=== PATIENT | male | born 1960 | race Caucasian/White ===

== ENCOUNTER 2021-05-21 12:53 | Emergency (ER) | payer OTHER, SELFPAY ==
--- NOTE | ~2021-05-21 | XR_ITS ---
XR forearm LT 2V DATE: 05/21/2021 13:20 INDICATION: Puncture wound to distal forearm TECHNIQUE: 3 views, AP and lateral projections COMPARISON: None FINDINGS: No fracture or dislocation, periosteal reaction or bone destruction. No radiopaque soft tis [place] foreign body is detected. No subcutaneous emphysema is noted. IMPRESSION: No significant abnormality Reviewed, dictated and finalized at location A. IMPRESSION: No significant abnormality
[2021-05-21 13:05] VITALS: BP 134/85; PULSE 106; RESP 20; TEMP 36.3; O2SAT 98
--- NOTE | 2021-05-21 13:12 | ED.WOUNDLAC ---
HPI - Wound/Laceration General Chief Complaint: Wound/Laceration Stated Complaint: Laceration to hand Time Seen by Provider: 05/21/21 12:57 Source: patient and RN notes reviewed Mode of arrival: ambulatory Limitations: no limitations History of Present Illness Onset (ago): hour(s) (1) Extremity Location: Left: forearm Place: outdoors Patient tetanus UTD: No Context: accidental Associated symptoms: pain and other (drill bit slipped and punctured palmar medial distal left forearm.) Treatments prior to arrival: bandage Related Data Allergies Allergy/AdvReac Type Severity Reaction Status Date / Time No Known Allergies Allergy Verified 05/21/21 13:12 Review of Systems Review of Systems: All systems reviewed & are unremarkable except as noted in HPI and below Constitutional: Constitutional: Reports as per HPI and Reports no additional constitutional complaints Eyes: Eyes: Reports as per HPI and Reports no additional eye complaints ENT: Reports system reviewed and no additional complaints, except as documented and Reports as per HPI Cardiovascular: Cardiovascular: Reports as per HPI and Reports no additional cardiovascular complaints Respiratory: Respiratory: Reports as per HPI and Reports no additional respiratory complaints Gastrointestinal: Gastrointestinal: Reports as per HPI and Reports no additional gastrointestinal complaints Genitourinary: Genitourinary: Reports no additional male genitourinary complaints and Reports as per HPI Musculoskeletal: Musculoskeletal: Reports no additional musculoskeletal complaints, Reports as per HPI and Reports myalgias (puncture wound of left distal forearm) Integumentary/Breasts: Skin/Breast: Reports system reviewed and no additional complaints, except as docu and Reports as per HPI Neurologic: Reports system reviewed and no additional complaints, except as documented and Reports as per HPI Psychiatric: Psychiatric: Reports no additional psychiatric complaints and Reports as per HPI Endocrine: Endocrine: Reports no additional endocrine complaints and Reports as per HPI Hematologic/Lymphatic: Hematologic/Lymphatic: Reports no additional hematologic/lymphatic complaints and Reports as per HPI Allergic/Immunologic: Allergic/Immunologic: Reports no additional allergic/immunologic complaints and Reports as per HPI PMFSH Past Medical History Medical History Cataract associated with other syndromes Medical history non-contributory Social History Social History Gender identity (if verbalized by the patient): Male Exam Const: General: healthy appearing, no acute distress and alert Orientation/consciousness: patient oriented x3 Limitations: no limitations HENMT: Head: normal to inspection Ears: external ears normal and TM's normal bilaterally General nose exam: Normal external nose present and Normal nares present Mouth: Yes lip normal and Yes moist mucous membranes Teeth and gingiva: dentition normal Eyes: Conjunctivae: conjunctivae normal Pupils: Equal, round and reactive pupils present EOM: EOMs intact bilaterally Neck: Neck: normal visual inspection and no lymphadenopathy Chest: Chest palpation & inspection: normal inspection of the chest Resp: Effort & Inspection: normal respiratory effort Auscultation: clear to auscultation bilaterally Cardio: Rate: regular rate Rhythm: regular rhythm GI: GI Palp: Yes Soft to palpation Percussion: Yes normal to percussion Auscultation: normal bowel sounds Back/Spine/Pelvis: Back: no CVA tenderness Skin: General skin exam: normal color Rashes: no rashes Neuro: General: patient oriented x3, moves all extremities, no focal motor deficits and CN's II-XI intact bilaterally Extrem: General: normal to inspection Other: distal palmar ulnar left forearm puncture wound. no acute bleeding Psych: Appearance: grossly no
[2021-05-21] MEDS: cefTRIAXone 1 GM VIAL IM (13:25)
[2021-05-21] MEDS: ACETAMINOPHEN 325 MG TABLET 650 MG PO (13:30)
[2021-05-21] MEDS: TETANUS,DIPHTHERIA,AC PERTUSSIS ADULT 0.5 ML (ADACEL) IM (13:31)
[2021-05-21] MEDS: LIDOCAINE HCL 1% LOCAL INJ 20 ML VIAL (13:33)
[2021-05-21 14:21] VITALS: BP 143/85; PULSE 99; RESP 20; TEMP 36.5; O2SAT 96
== END 2021-05-21 14:00 | disposition home or self-care (01) ==
PROVIDERS: Emergency Provider Emergency Medicine; PCP Internal Medicine
DX: S51.812A Laceration without foreign body of left forearm, initial encounter (principal); W45.8XXA Other foreign body or object entering through skin, initial encounter
CPT/HCPCS: 12001; 73090; 90471; 90715; 96372; 99283; A9270; J0696

== ENCOUNTER 2022-12-18 08:15 | Outpatient (CLI) | payer OTHER, SELFPAY ==
--- NOTE | ~2022-12-18 | XR_ITS ---
XR hip LT 2V w AP pelvis DATE: 12/18/2022 08:52 INDICATION: Left hip and groin pain after moving furniture TECHNIQUE: AP pelvis. AP and lateral views of left hip COMPARISON: None FINDINGS: Bilateral hip osteoid arthritis, mild on the left, moderate to moderately severe on the rig ht. The pubic symphysis and sacroiliac joints are intact. No pelvic fracture or bone destruction is detec gagan. No fracture, dislocation, avascular necrosis or bone destruction of the left hip. IMPRESSION: Bilateral hip osteoarthritic arthritis, right greater than left No fracture or dislocation Reviewed, dictated and finalized at location L. TRUCTION ACCOUNTANT
== END 2022-12-18 08:16 | disposition home or self-care (01) ==
LOC: CHSIMG 08:20
PROVIDERS: PCP Internal Medicine; Visit Provider Internal Medicine
DX: M25.552 Pain in left hip (principal); M16.0 Bilateral primary osteoarthritis of hip
CPT/HCPCS: 73502

== ENCOUNTER 2023-09-08 11:37 | Outpatient (CLI) | payer MEDICARE, OTHER, SELFPAY ==
--- NOTE | ~2023-09-08 | XR_ITS ---
Thoracic spine: Clinical Indication: Back pain AP and lateral views were performed. No fracture is seen. There is normal alignment of the vertebrae. The intervertebral disc spaces appe ar normal. Paravertebral soft tissues appear normal. Impression: No significant abnormalities noted. Reviewed, dictated and finalized at [facility]. KROOM INVENTORY CLERK Impression: No significant abnormalities noted.
--- NOTE | ~2023-09-08 | XR_ITS ---
Lumbosacral Spine: AP and lateral views Clinical History: Pain Findings: The normal lordotic curve is maintained. The vertebral bodies and posterior elements are i ntact. The intervertebral disc spaces are preserved. There is moderate to advanced facet arthropathy , especially at L4-L5 and L5-S1. The sacroiliac joints are normally outlined. Impression: Moderate to advanced facet arthropathy at the lower lumbar spine. Reviewed, dictated and finalized at location M. HEARTH FURNACE OPERATOR Impression: Moderate to advanced facet arthropathy at the lower lumbar spine.
== END 2023-09-08 11:38 | disposition home or self-care (01) ==
PROVIDERS: PCP Internal Medicine; Visit Provider Internal Medicine
DX: M54.6 Pain in thoracic spine (principal); D72.829 Elevated white blood cell count, unspecified; R35.89 Other polyuria; M12.88 Other specific arthropathies, not elsewhere classified, other specified site
CPT/HCPCS: 72072; 72100

== ENCOUNTER 2023-09-17 07:49 | Outpatient (RCR) | payer MEDICARE, OTHER, SELFPAY ==
--- NOTE | 2023-09-30 17:49 | OPREHPOC ---
Outpatient Therapy Plan of Care This is a Multidisciplinary Plan of Care that may contain components documented by all disciplines (PT, OT, and ST.) PT Problem 1 PT Problem #1 Knowledge Deficit PT Goal 1 Goal 1. independent and compliant with HEP Target Visit 2 PT Problem 2 PT Problem #2 Impaired Range of Motion PT Goal 1 Goal 1. improve active flexion of the trunk to the ankles. Target Visit 3 PT Problem 3 PT Problem #3 Impaired Strength PT Goal 1 Goal 1. 5/5 bilateral hip strength Target Visit 3 PT Problem 4 PT Problem #4 Impaired Flexibility PT Goal 1 Goal 1. improve bilateral hamstrings tightness to less than 40 degrees from 0 per the 90/90 test.
--- NOTE | 2023-09-30 17:49 | PTOPEVAL1 ---
Assessment and note entered by JT File, PT Evaluation Information Assessment Status Evaluation Diagnosis lumbago Onset 09/11/23 Subjective Information he reports he did not hurt himself lifting. he reports he has cysts in his L groin. he reports they will burst and become infected from time to time. he reports the doctor told him the infectiong lingered around and went up to his back . he reports he is on antibiotics for the issues. he reports laying down is fine. he reports he has very little discomfort currently. he reports his round of antibiotics ends tomorrow. he reports he has no trouble driving. he reports sitting makes the back worse. Assessment PT Clinical Summary mr. quick is a 63 yo man who presents to skilled PT for evaluation and treatment of lower back pain . he presents today with no pain in the lower back , and flare ups of pain only with groin swelling from cyst infection. he presents today with slight weakness in the hips/core, deficits in trunk active flexion, and hamstrings tightness. he would benefit from continued skilled PT to improve his core and LE strength to prepare for potential surgery to remove the problematic cysts. Plan of Care Interventions Gait Training,Manual Therapy,Neuro Re-education, Patient/Caregiver Educati,Therapeutic Activities, Therapeutic Exercise PT Services Indicated Yes Treatment Frequency and 1x weekly for 3 visits Duration These treatments will address the objective and functional deficits as defined above. The patient will be advanced safely and appropriately in order for the patient to progress towards his/her prior level of function. Additional exercises will be introduced and as well as a comprehensive home exercise program upon discharge, if needed, ?to ensure carryover of functional gains achieved in the clinic. This treatment plan has been reviewed and agreement upon by the patient.
--- NOTE | 2023-10-01 07:41 | OPREHPOC ---
Outpatient Therapy Plan of Care This is a Multidisciplinary Plan of Care that may contain components documented by all disciplines (PT, OT, and ST.) PT Problem 1 PT Problem #1 Knowledge Deficit PT Goal 1 Goal 1. independent and compliant with HEP Target Visit 2 Progress Met PT Problem 2 PT Problem #2 Impaired Range of Motion PT Goal 1 Goal 1. improve active flexion of the trunk to the ankles. Target Visit 3 Progress Not Met PT Problem 3 PT Problem #3 Impaired Strength PT Goal 1 Goal 1. 5/5 bilateral hip strength Target Visit 3 Progress Met PT Problem 4 PT Problem #4 Impaired Flexibility PT Goal 1 Goal 1. improve bilateral hamstrings tightness to less than 40 degrees from 0 per the 90/90 test. Target Visit 3 Progress Partially Met
--- NOTE | 2023-10-01 07:41 | PTOPDC ---
Assessment and note entered by JT File, PT Evaluation Information Assessment Status Discharge Diagnosis lumbago Onset 09/11/23 Subjective Information patient reports the exercises he has been doing since therapy have helped his back. however, he did have a flare up in the groin last week that caused pain in the lower back. he reports he has some soreness in the back from lifting books and other objets at work the last few days. he reports in general staying active makes him feel better, and he believes when he is down from his groin infections that his back flares up from not being active. he reports he is having the cysts removed at the turn of the year. Reported Pain Level Pain Score 0: Self Report Assessment PT Clinical Summary mr. quick presents to skilled PT for his 2nd skilled therapy visit. he reports he is doing well and is ready to DC skilled PT. he reports his back pain continues to be tied to infetious flare ups in the L groin. today, he displays greater hip strength, improved self functional assessment on the oswestry, and no pain. he will DC to [facility] today, and was told to follow up for any occurence of back pain after the L groin cyst removal. Plan of Care PT Services Indicated Yes
== END 2023-10-01 20:00 | disposition home or self-care (01) ==
LOC: CHSPT 07:49
PROVIDERS: PCP Internal Medicine; Visit Provider Internal Medicine
DX: M54.9 Dorsalgia, unspecified (principal)
CPT/HCPCS: 97110; 97161

== ENCOUNTER 2023-10-07 09:52 | Outpatient (CLI) | payer MEDICARE, OTHER, SELFPAY ==
--- NOTE | ~2023-10-07 | CT_ITS ---
EXAMINATION: CT lung screening DATE: 10/07/2023 10:24 INDICATION: History of nicotine dependence TECHNIQUE: Computed tomography (CT) of the chest was performed without intravenous contrast. The dose -length product was 143.27 mGy-cm. Automated exposure control and iterative reconstruction technique were employed. COMPARISON: None FINDINGS: No significant pleural or pericardial effusion. There is atherosclerosis. Heart size normal . Nonobstructing left renal stone measuring 9 mm. No thoracic lymphadenopathy. No endobronchial lesio ns. No pneumothorax. No suspicious pulmonary nodules or masses. No endobronchial lesions. IMPRESSION: 1. Lung-RADS category 1: Negative. Continue annual screening with noncontrast low-dose chest CT in 12 months. Reviewed, dictated and finalized at location B. ING MANAGER IMPRESSION: 1. Lung-RADS category 1: Negative. Continue annual screening with noncontrast l ow-dose chest CT in 12 months.
== END 2023-10-07 09:53 | disposition home or self-care (01) ==
LOC: CHSIMG 09:53
PROVIDERS: PCP Internal Medicine; Visit Provider Internal Medicine
DX: Z12.2 Encounter for screening for malignant neoplasm of respiratory organs (principal); F17.210 Nicotine dependence, cigarettes, uncomplicated
CPT/HCPCS: 71271

== ENCOUNTER 2024-01-04 00:36 | Day surgery (SDC) | payer MEDICARE, OTHER, SELFPAY ==
[2023-12-23 13:48] VITALS: BMI 30.8
--- NOTE | 2023-12-23 14:15 | PC.NURSE ---
Report to the Outpatient Waiting Room, entrance under the green pavilion located off [facility], at time __10:30AM on date __01/04/24 . Planned Procedure Time: __12:30PM . Time changes happen often and if your time is changed the preop area will call you the afternoon before. - You and your visitor will be asked to self-screen and do not enter if you have any COVID symptoms. - A mask is optional within the hospital at this time. Patients may have clear liquids (water, carbonated beverages, clear teas, apple juice) until 3 hours prior to surgery with a maximum of 20 ounces. - No food from midnight until time of surgery - Infants may have breast milk until 4 hours before surgery, formula 6 hours prior to surgery. - Children will be allowed to drink immediately following surgery. If applicable, please bring a bottle or sippy cup to assist with drinking. Juice, water, soda, and popsicles are readily available. For infants on formula, please bring formula the day of surgery. Pacifiers are allowed. Take the following medications with a SIP of water the morning of surgery: NONE (PT WILL HAVE FINISHED ANTIBIOTICS BEFORE SURGERY)___ DO NOT STOP ANY OF YOUR OTHER PRESCRIPTION MEDICATIONS PRIOR TO SURGERY ?EXCEPT THE FOLLOWING Medications to discontinue per physician ____HOLD ALL VITAMINS/SUPPLEMENTS 3 DAYS PRE-OP PER ANESTHESIA Date to take last dose 12/31/23 Please no make-up, nail greek, hairspray, perfume, deodorant, or body powder the day of surgery. No jewelry (including any body piercings) or valuables the day of surgery, leave them at home. Please take a shower or bath the night before, or the morning of, surgery with an antibacterial soap. Wear comfortable, loose fitting clothing. Children are encouraged to wear pajamas. - Jewelry must be removed prior to entering the operating room. Rings and piercings that are not removed may be cut off. - The hospital will not accept responsibility for valuables. - Please leave all valuables, including medications, at home the day of surgery. If you are going home after surgery, a licensed utility worker driver must drive you home. - NO public transportation without another adult if you receive anesthesia. - We recommend that an adult stay with you for 24 hours following discharge. - We also recommend that you do not drive, make important decision, drink alcoholic beverages, or take any drugs that were not prescribed by your health care provider for at least 24 hours after your discharge time. For Pediatric surgeries, we recommend two adults accompany the child home. Follow any additional instructions given to you from your surgeon. If you or anyone in your household have experienced Covid symptoms in the past week, please notify your surgeon or the nurse liaison at the phone number below for possible testing. Telephone instructions given to ____PATIENT and asked if any additional questions and then verbalized understanding. Patient advised to call surgeon office or pre surgery nurse liaison [phone] if any additional questions.
[2024-01-04] VITALS (9 sets, daily range): BP systolic 114–161; BP diastolic 63–87; PULSE 57–88; RESP 10–18; TEMP 36.3–36.9; O2SAT 97–100; BMI 29.4
[2024-01-04] MEDS: LACTATED RINGERS 1,000 ML 30 ML IV CONT ×2 (11:04→13:38)
--- NOTE | 2024-01-04 12:03 | P.PNAN_ITS ---
Anes - Initial Pre Proc Eval Procedure: Operation Date: 01/04/24 12:30 Proposed Procedures p Excision of Left Groin Hidradenitis - Jorgito Kerns DO Date/Time: 01/04/24 12:03 Surgeon: Jorgito Kerns DO Pre Op Diagnosis: Hidradenitis Patient Data Age: 63 Gender: M Height: 1.83 m Weight: 98.3 kg Last Vital Signs Temp 98.4 F 01/04/24 11:01 Pulse 85 01/04/24 11:01 Resp 16 01/04/24 11:01 BP 159/87 H 01/04/24 11:01 Pulse Ox 99 01/04/24 11:01 O2 Del Method Room Air 01/04/24 11:01 Allergies Allergy/AdvReac Type Severity Reaction Status Date / Time No Known Allergies Allergy Verified 12/23/23 13:45 Home Medications Medication Instructions Recorded Confirmed Type acetaminophen 650 mg 1,300 mg PO Q12H PRN Pain 12/23/23 01/04/24 History tablet,extended release ciprofloxacin HCl 500 mg tablet 500 mg PO BID 12/23/23 12/23/23 History metronidazole 500 mg tablet 500 mg PO TID 12/23/23 12/23/23 History multivitamin 1 tablet PO DAILY 12/23/23 01/04/24 History Patient hx anesthesia problems: none Family hx anesthesia problems: none Results Review: All pre-operative results and documents have been reviewed as part of the pre- operative evaluation. [facility] Past Medical History Medical History Cataract associated with other syndromes Leukemia Medical history non-contributory Surgical History Surgical History History of back surgery Family History Family History Mother Diabetes mellitus Rectal cancer Father History of kidney cancer Social History Social History Smoking packs per day: 0.75 Smoking cigarettes per day: 15.0 Years smoked: 47 Smoking pack-years: 35.25 Smoking status: Current every day smoker Tobacco type: cigarettes Alcohol intake: never Living arrangements: with family Additional living arrangements comments: SISTER-LALITHA Occupation/Education: occupation Additional occupation/education comments: [employer] Gender identity (if verbalized by the patient): Male Spiritual care concerns: No Anes - Eval Final PreProcedure Day of Procedure 01/04/24 12:03 Patient weight: obese Heart: regular rate and rhythm Lungs: clear to auscultation Airway: Mallampati scale class II Neurological: alert and oriented Last oral intake: >/= 8 hours ASA classification: III Emergent: no Anesthetic plan: proceed Anesthesia type and monitoring: general LMA and standard monitoring Results Review: All pre-operative results and documents have been reviewed as part of the pre- operative evaluation. Informed Consent: The patient's anesthetic plan and its attendant risks and benefits were discussed with the patient/family/POA. Questions were solicited and answers provided to the satisfaction of the patient/family/POA.
--- NOTE | 2024-01-04 12:08 | WPDHPUPDATE1 ---
History and Physical Update Update Date/Time: 01/04/24 12:08 History and Physical has been reviewed, including an updated exam of the patient. There are NO changes in the patient's condition. Risks, benefits, and alternatives have been discussed and questions answered. Patient agrees to proceed with procedure.
[2024-01-04] MEDS: ceFAZolin 2 GM/D5W 50 ML 2 GM/50 ML BAG IVPB (12:26)
[2024-01-04] MEDS: LIDO 1%/EPINEPHRINE 1:100,000 20 ML VIAL INFILTRATE (12:45)
--- NOTE | 2024-01-04 13:08 | W.PM.PROC2 ---
Procedure Note - Detailed Date of Procedure 01/04/24 Pre-op Diagnosis Left groin hidradenitis Post-op Diagnosis Same Procedure Performed Excision left groin hidradenitis Surgeon Jorgito Kerns, DO Anesthesia General and Local (1% lidocaine with epinephrine) Indications This is a 63-year-old man who presented with chronic hidradenitis that was becoming infected and draining room multiple times per year. He has tried minute topical treatment options but still continues to occasional drainage. Discussions were made with the patient about treatment options and decision was made to proceed with excision the left groin hidradenitis Findings Left groin hidradenitis was excised. Patient had about an 8 cm segment of left groin hidradenitis just lateral to the scrotum. There were multiple sinus tracts within this region. Did appear to be any sign of active infection or purulence drainage. The segment was excised completely and sent to the lab for pathology. The skin edges were then repaired primarily using 3-0 nylon vertical mattress interrupted sutures. Description of Procedure Procedure as well as risks, benefits, and alternatives were discussed with the patient. Written consent was obtained and placed in chart prior to procedure. Patient was brought back to surgical suite. He was placed supine on operating table. Time-out was done to confirm patient and procedure. He was then intubated by the anesthesia department. He was then repositioned into dorsal lithotomy position. His groin was prepped and draped in sterile fashion using Betadine. The margins of the involved area of skin were marked out. 1% lidocaine with epinephrine was then infiltrated locally around this area. An 8 cm elliptical incision was then made to encompass the skin of the involved hidradenitis area. Electrocautery was used for hemostasis and for dissection through the subcutaneous tissue. The skin was carefully dissected off of the subcutaneous tissue deep to it using electrocautery. It was excised completely and sent to the lab for pathology. The wound bed was then inspected. Hemostasis appeared adequate. The area was irrigated with sterile saline. The skin edges were then reapproximated using 3-0 vertical mattress interrupted sutures. A total of 7 sutures placed to approximate this without any tension. Bacitracin ointment was then applied followed by Xeroform gauze, 4 x 4 gauze, and tape. The patient was then awakened from anesthesia, extubated, and transferred to recovery. Estimated Blood Loss 5 Pathology Yes (Left groin hidradenitis) Complications No immediate complications Condition Stable Disposition Same day [facility] Billing Surgery - Charge Forward: Surgery Billing
--- NOTE | 2024-01-04 13:43 | SUR.PHASEI ---
1343: Simple mask removed.
== END 2024-01-04 14:44 | disposition home or self-care (01) ==
PROVIDERS: PCP Internal Medicine; Visit Provider Surgery
PROC: (CPT 11462; principal; 2024-01-04 12:30)
DX: L73.2 Hidradenitis suppurativa (principal); L72.11 Pilar cyst; C91.10 Chronic lymphocytic leukemia of B-cell type not having achieved remission; F17.210 Nicotine dependence, cigarettes, uncomplicated; E66.9 Obesity, unspecified; Z68.29 Body mass index [BMI] 29.0-29.9, adult; Z98.1 Arthrodesis status; Z80.0 Family history of malignant neoplasm of digestive organs; Z80.51 Family history of malignant neoplasm of kidney
CPT/HCPCS: 11462; 88304; A9270; J0690; J1100; J1170; J2250; J2371; J2405; J2704; J3010; J7120

== ENCOUNTER 2024-02-24 10:03 | Outpatient (CLI) | payer MEDICARE, SELFPAY ==
[2024-02-24 10:30] LABS: Hematocrit 45.7 % (37.0-46.0); Hemoglobin 15.2 g/dL (12.4-15.3); Mean Corpuscular HGB Conc 33.3 g/dL (32-36); Mean Corpuscular Hemoglobin 29.6 pg (27.0-31.0); Mean Corpuscular Volume 89.1 fL (78.0-102.0); Mean Platelet Volume 9.9 fl (8.7-11.0); Platelet Count Result 272 K/mm3 (150-420); Red Blood Count 5.13 M/mm3 (4.70-6.10); Red Cell Distribution Width 13.6 % (11.6-14.4); White Blood Count 12.6 K/mm3 (4.8-10.8)
[2024-02-24 11:30] LABS: Total Cells Counted 100
[2024-02-24 11:31] LABS: Band Neutrophils Percent 0 % (0-6); Eosinophils Percent Manual 4 % (1-6); Lymphocytes Absolute Manual 5.79 K/mm3 (1.1-4.5); Lymphocytes Percent Manual 46 % (18-44); Monocytes Percent Manual 8 % (3-9); Neutrophils Absolute Manual 5.29 K/mm3 (1.3-6.7); Neutrophils Percent Manual 42 % (46-73); Platelet Estimate Adequate (Adequate)
[2024-02-24 11:39] LABS: Alanine Aminotransferase 31 U/L (16-63); Alkaline Phosphatase 104 U/L (46-116); Anion Gap 7 mmol/L (4-12); Aspartate Amino Transferase 18 U/L (15-37); Bilirubin,Total 0.4 mg/dL (0.00-1.00); Blood Urea Nitrogen 15 mg/dL (7-18); Calcium 9.2 mg/dL (8.5-10.1); Carbon Dioxide 31 mmol/L (21-32); Chloride 102 mmol/L (98-108); Estimated Glomerular Filt Rate > 60; Glucose 92 mg/dL (70-99); Lactate Dehydrogenase 139 U/L (85-227); Osmolality Calculated 290 mOsm/kg (285-295); Potassium 4.1 mmol/L (3.5-5.1); Sodium 140 mmol/L (136-145)
== END 2024-02-24 10:04 | disposition home or self-care (01) ==
LOC: CHSLAB 10:05
PROVIDERS: PCP Internal Medicine; Visit Provider Internal Medicine Hematology
DX: C91.10 Chronic lymphocytic leukemia of B-cell type not having achieved remission (principal)
CPT/HCPCS: 36415; 80053; 83615; 85025

== ENCOUNTER 2024-06-22 09:07 | Outpatient (CLI) | payer MEDICARE, OTHER, SELFPAY ==
--- NOTE | ~2024-06-22 | XR_ITS ---
EXAMINATION: XR thoracic spine 3V DATE: 06/22/2024 09:29 INDICATION: Mid back pain. TECHNIQUE: 3 views of thoracic spine were obtained. COMPARISON: Thoracic spine radiographs 09/08/2023, chest CT 10/07/2023 FINDINGS: There is 7 degrees levocurvature of upper thoracic spine. Vertebral body heights are normal . There is mildly decreased disc height at multiple levels. There are endplate osteophytes at most le vels. IMPRESSION: 1. Mild thoracic spondylosis. Reviewed, dictated and finalized at location A.
== END 2024-06-22 09:08 | disposition home or self-care (01) ==
PROVIDERS: PCP Internal Medicine; Visit Provider Internal Medicine
DX: C91.10 Chronic lymphocytic leukemia of B-cell type not having achieved remission (principal); L02.212 Cutaneous abscess of back [any part, except buttock and flank]; D72.829 Elevated white blood cell count, unspecified; M43.04 Spondylolysis, thoracic region
CPT/HCPCS: 72072

== ENCOUNTER 2024-07-11 07:41 | Outpatient (CLI) | payer MEDICARE, OTHER, SELFPAY ==
--- NOTE | ~2024-07-11 | CT_ITS ---
CT of the Abdomen and Pelvis: Indication: Right flank pain Technique: 2.5 mm axial scans were obtained through the abdomen and pelvis following intravenous adm inistration of 100 cc of Omnipaque 350. Dose reduction technique was used on this scan by utilizing a utomated exposure control and iterative reconstruction technique. The dose-length product (DLP) was 7 26.44 mGy-cm. Findings: Scans through the lung bases are unremarkable. The liver, spleen, pancreas, adrenals and right kidney are within normal limits. 1 cm nonobstructing left renal stone present. There are atherosclerotic calcifications of the aorta. Gallbladder absent. No lymphadenopathy. No bowel obstruction or bowel wall thickening. There is colonic diverticulosis. Images through the pelvis were performed. Small fat-containing right inguinal hernia present. Urinary bladder unremarkable. Prostate gland mildly enlarged. Impression: Small fat-containing right inguinal hernia. 1 cm nonobstructing left renal stone. Enlarged prostate gland. Reviewed, dictated and finalized at [facility]. Impression: Small fat-containing right inguinal hernia. 1 cm nonobstructing left renal stone. Enlarged prostate gland.
[2024-07-11 08:01] LABS: Estimated Glomerular Filt Rate 58
== END 2024-07-11 07:42 | disposition home or self-care (01) ==
LOC: CHSIMG 07:43
PROVIDERS: PCP Internal Medicine; Visit Provider Internal Medicine
DX: M54.6 Pain in thoracic spine (principal); R10.9 Unspecified abdominal pain; K40.90 Unilateral inguinal hernia, without obstruction or gangrene, not specified as recurrent; N20.0 Calculus of kidney; N40.0 Benign prostatic hyperplasia without lower urinary tract symptoms
CPT/HCPCS: 74177; Q9967

== ENCOUNTER 2024-07-14 09:29 | Outpatient (CLI) | payer MEDICARE, OTHER, SELFPAY ==
--- NOTE | ~2024-07-14 | MR_ITS ---
EXAMINATION: MR thoracic spine wo con DATE: 07/14/2024 11:21 INDICATION: Right parathoracic pain. Mid back pain. TECHNIQUE: Magnetic resonance imaging (MRI) of the thoracic spine was performed without intravenous c ontrast. Sagittal localizer T1-weighted FSE of the cervical spine was obtained. Thoracic spine sequen shantal included sagittal T2-weighted FSE, sagittal T1-weighted FSE, sagittal T2-weighted FS FSE, and axi al T2-weighted FSE. COMPARISON: Thoracic spine radiographs 06/22/2024 FINDINGS: There is 8 degrees levocurvature of cervicothoracic spine. There is mild chronic anterior w edging of T6-T9 vertebral bodies. There are Schmorl's nodes at many levels. There is mildly decreased disc height at T5-T6 and T7-T8. There are central protrusions at T6-T7 and T7-T8 with mild central c anal stenosis. There is multilevel facet joint osteoarthritis, severe at many levels. There is multil evel mild neural foraminal stenosis on either side. There is moderate neural frontal stenosis on the right at T2-T3. The spinal cord signal intensity is normal. The conus medullaris is at L1. IMPRESSION: 1. Moderate right neural foraminal stenosis at T2-T3. Otherwise mild thoracic spondylosis. Reviewed, dictated and finalized at location A. IMPRESSION: 1. Moderate right neural foraminal stenosis at T2-T3. Otherwise mild thoracic s pondylosis.
== END 2024-07-14 09:30 | disposition home or self-care (01) ==
LOC: CHSIMG 09:31
PROVIDERS: PCP Internal Medicine; Visit Provider Internal Medicine
DX: M54.6 Pain in thoracic spine (principal); R10.9 Unspecified abdominal pain; M48.04 Spinal stenosis, thoracic region; M43.04 Spondylolysis, thoracic region
CPT/HCPCS: 72146

== ENCOUNTER 2025-06-17 02:38 | Emergency (ER) | payer MEDICARE, OTHER, SELFPAY ==
--- NOTE | ~2025-06-17 | XR_ITS ---
EXAMINATION: XR lumbar spine 2-3V, XR thoracic spine 2V DATE: 06/17/2025 03:31 INDICATION: Nontraumatic back pain TECHNIQUE: 1. Anteroposterior, lateral and lateral swimmer's views of the thoracic spine were obtained. Anteroposterior and lateral views of the lumbar spine, and cone- down lateral view of the lumbosacral junction were obtained. COMPARISON: 09/08/2023 FINDINGS: There are 12 paired rib bearing thoracic segments. There are hypoplastic bilateral riblets at a thoracolumbar segment which will be designated L1 with 4 more caudal nonrib-bearing lumbar segments. 8 degree thoracolumbar levocurvature and second-degree lumbar dextrocurvature. Sagittal alignment of the thoracic and lumbar spine is normal. Vertebral body heights are normal. Moderate lower cervical spondylosis. Mild spondylosis with mild disc height loss and small degenerative endplate osteophytes at multiple levels throughout the thoracic spine. Additional mild disc height loss at T12-L1 and L2-L3. Moderate to severe lower lumbar facet osteoarthritis. 11 mm left renal stone. Moderate to large amount of colonic stool. No dilated loops of gas-filled bowel to suggest obstruction. Visualized lungs are clear with no focal airspace opacities, pulmonary edema, pleural effusion or pneumothorax. Heart size is normal. IMPRESSION: 1. Moderate lower cervical and mild thoracic and lumbar spondylosis. 2. 11 mm left renal stone. Reviewed, dictated and finalized at location A. IMPRESSION: 1. Moderate lower cervical and mild thoracic and lumbar spondylosis. 2. 11 mm left renal stone.
[2025-06-17 02:38] VITALS: BP 161/89; PULSE 91; RESP 20; TEMP 37; O2SAT 97
--- NOTE | 2025-06-17 02:41 | ED_ITS ---
HPI - Back Pain/Injury General Chief Complaint: Back Pain/Injury Stated Complaint: Chronic Back Pain Time Seen by Provider: 06/17/25 02:39 Source: patient and family Mode of arrival: ambulatory Limitations: no limitations History of Present Illness HPI Narrative: patient is a 64-year-old male with lower back pain for the past year having acute onset pain over his chronic pain for the past 2 days. Pain is specif ically the mid to lower back midline spine. He has an MRI planned next week with the primary doctor here at the hospital. He is seeing Pain Management but not on narcotics. No injury. No saddle anesthesia or urinary or bowel changes. MD elicited complaint: back pain Pertinent past history: prior back pain Onset (ago): day(s) ( Two) Timing: constant Severity: moderate Pain scale (0-10): 8 Similar Symptoms Previously: Yes Quality: burning and sharp Location: lumbar spine Radiation: none Exacerbating factors: movement Relieving factors: immobilization Context: while lifting, turning/twisting and bending Associated symptoms: denies other symptoms Treatments prior to arrival: cold therapy Related Data Home Medications ?Medication ?Instructions ?Recorded ?Confirmed ?Last Taken ?Type acetaminophen 650 mg 1,300 mg PO Q12H PRN Pain 03/27/24 01/03/24 History tablet,extended release multivitamin 1 tablet PO DAILY 12/23/23 0 03/27/24 5 Days Ago History ~12/30/23 Allergies Allergy/AdvReac Type Severity Reaction Status Date / Time No Known Allergies Allergy Verified 06/17/25 03:18 Review of Systems Review of Systems: All systems reviewed & are unremarkable except as noted in HPI and below Constitutional: Constitutional: Reports no additional constitutional complaints Eyes: Eyes: Reports no additional eye complaints ENT: Reports system reviewed and no additional complaints, except as documented Cardiovascular: Cardiovascular: Reports no additional cardiovascular complaints Respiratory: Respiratory: Reports no additional respiratory complaints Gastrointestinal: Gastrointestinal: Reports no additional gastrointestinal complaints Genitourinary: Genitourinary: Reports no additional male genitourinary complaints Musculoskeletal: Musculoskeletal: Reports no additional musculoskeletal complaints Integumentary/Breasts: Skin/Breast: Reports system reviewed and no additional complaints, except as docu Neurologic: Reports system reviewed and no additional complaints, except as documented Psychiatric: Psychiatric: Reports no additional psychiatric complaints Endocrine: Endocrine: Reports no additional endocrine complaints Hematologic/Lymphatic: Hematologic/Lymphatic: Reports no additional hematologic/lymphatic complaints Allergic/Immunologic: Allergic/Immunologic: Reports no additional allergic/immunologic complaints [facility] Past Medical History Medical History Leukemia Cataract associated with other syndromes Medical history non-contributory Surgical History Surgical History Hidradenitis suppurativa 01/04/24 Excision left groin hidradenitis History of back surgery Family History Family History Mother Diabetes mellitus Rectal cancer Father History of kidney cancer Social History Social History Smoking packs per day: 0.75 Smoking cigarettes per day: 15.0 Years smoked: 47 Smoking pack-years: 35.25 Smoking status: Current every day smoker Tobacco type: cigarettes Alcohol intake: never Do You Feel Safe in your Home?: Yes Lack of Transportation: No Lack of Food: Never True Current Housing: I Have Housing Concerned About Future Housing: No Difficulty Paying Gas/Electric Bills: No Difficulty Paying for Meds: No Currently Unemployed: YES Education: High School Diploma/GED Difficulty w/ Childcare or Family Care: No Living arrangements: with family Additional living arrangements comments: -LALITHA Occupation/Education: occupation Additional occupation/education comments: [employer] Gender identity (if verbalized by the patient): Male Spiritual care concerns: No Exam Const: General: healthy appearing Nutritional Appearance: well nourished Orientation/consciousness: patient oriented x3 HENMT: Head: normal to inspection Ears: external ears normal Face/Nose/Sinus: Normal external nose present Eyes: Conjunctivae: conjunctivae normal Pupils: Equal, round and reactive pupils present EOM: EOMs intact bilaterally Neck: Neck: normal visual inspection Chest: Chest palpation & inspection: normal inspection of the chest Resp: Effort & Inspection: normal respiratory effort and not labored Auscultation: clear to auscultation bilaterally and no crackles Cardio: Rate: regular rate Rhythm: regular rhythm Heart sounds: no murmurs GI: Inspection: non-distended GI Palp: Yes Soft to palpation and No Tenderness to palpation present (GI) Auscultation: normal bowel sounds : General: Yes bladder normal to palpation Back/Spine/Pelvis: Back: no CVA tenderness Skin: General skin exam: normal color Rashes: no rashes Wounds: no wounds Neuro: General: patient oriented x3, moves all extremities, no meningeal signs, no focal motor deficits and CN's II-XI intact bilaterally Cranial nerves: Yes Nystagmus not present Speech: normal speech Gait exam (Neuro): gait abnormal ( difficulty with gait due to pain of the lumbar spine) Other: unable to get straight leg test at this time due to pain; complaint is only in the mid to lower back Extrem: General: normal to inspection Psych: Mental Status: mental status grossly normal Affect: Anxious affect present Attitude: cooperative Course Vital Signs Vital signs: Vital Signs Temperature 37.0 C 06/17/25 02:38 Pulse Rate 91 06/17/25 02:38 Respiratory Rate 20 06/17/25 02:38 Blood Pressure 161/89 H 06/17/25 02:38 Pulse Oximetry 97 06/17/25 02:38 Oxygen Delivery Room Air 06/17/25 02:38 Temperature 37.0 C 06/17/25 02:38 Pulse Rate 91 06/17/25 02:38 Respiratory Rate 20 06/17/25 02:38 Blood Pressure 161/89 H 06/17/25 02:38 Pulse Oximetry 97 06/17/25 02:38 Oxygen Delivery Room Air 06/17/25 02:38 MDM - Back Pain/Injury MDM Narrative Medical decision making narrative: patient is a 64-year-old male with mid to lower back pain acute on chronic here for pain control. X-rays. Pain control. MRI plan by the primary in the next week. Imaging Data Attestation: I personally reviewed and interpreted this imaging study as follows: Radiologist's impression: X-ray lumbar spine is negative for acute process but chronic changes seen pending final radiology reading x-ray thoracic spine is negative for acute process but chronic changes seen pending final radiology reading Discharge Plan Discharge Clinical Impression: Degenerative joint disease of thoracic spine Qualifiers: Spinal osteoarthritis complication: unspecified spinal osteoarthritis Qualified Code(s): M47.814 - Spondylosis without myelopathy or radiculopathy, thoracic region Degenerative joint disease (DJD) of lumbar spine Qualifiers: Spinal osteoarthritis complication: unspecified spinal osteoarthritis Qualified Code(s): M47.816 - Spondylosis without myelopathy or radiculopathy, lumbar region Patient Disposition: Home Condition: Stable Instructions: Acute Low Back Pain (ED) Additional Instructions: please make sure to follow-up with the MRI is planned for your back spine. Follow up with the primary doctor as planned. Patient Language: Maltese Prescriptions: New prednisone 20 mg tablet 40 mg PO DAILY 3 Days Qty: 6 0RF hydrocodone-acetaminophen 5-325 mg tablet 1 tablet PO Q8H PRN (Reason: pain) Qty: 20 0RF No Action multivitamin Tablet 1 tablet PO DAILY acetaminophen 650 mg Tablet Extended Release 1,300 mg PO Q12H PRN (Reason: Pain) Follow-up/Referrals: Tacho Manjarrez MD [Primary Care Provider, Internal Medicine] Time of Disposition: 04:50
[2025-06-17] MEDS: KETOROLAC (*BKC) 60 MG/2 ML VIAL IM (03:35)
[2025-06-17] MEDS: HYDROcodone/acetaminophen (*CRX) 10-325 MG TABLET 1 TAB PO (03:36)
[2025-06-17] MEDS: ONDANSETRON HCL ODT 4 MG TABLET PO (03:36)
[2025-06-17 04:55] VITALS: BP 163/86; PULSE 81; RESP 18; TEMP 36.4; O2SAT 96
== END 2025-06-17 04:55 | disposition home or self-care (01) ==
PROVIDERS: Emergency Provider Emergency Medicine; PCP Internal Medicine
DX: M47.814 Spondylosis without myelopathy or radiculopathy, thoracic region (principal); M47.816 Spondylosis without myelopathy or radiculopathy, lumbar region; F17.210 Nicotine dependence, cigarettes, uncomplicated
CPT/HCPCS: 72070; 72100; 96372; 99283; A9270; J1885; J7512

== ENCOUNTER 2025-06-18 21:08 | Emergency (ER) | payer MEDICARE, OTHER, SELFPAY ==
[2025-06-18] VITALS (9 sets, daily range): BP systolic 142–169; BP diastolic 68–144; PULSE 69–80; RESP 16–18; TEMP 36.4; O2SAT 95–99
--- NOTE | ~2025-06-18 | CT_ITS ---
Exam: CTA chest with contrast Clinical History: [Left-sided chest pain. Mid back pain ] Comparison: [ CT chest without contrast 11/15/2024] Technique: Multiple axial CTA images of the chest with IV contrast. Sagittal and coronal reformatted images were obtained. FINDINGS: Lungs and pleura: [ Visualized tracheobronchial tree is patent. No pneumothorax. No pleural effusion. No focal pulmonary consolidation. No pulmonary mass. There are a few small subpleural reticular opacities in the lower lungs. Mild centrilobular emphysema in the upper lobes. 5 mm subpleural nodule in the lingula.] Small pulmonary emboli identified in the right upper lobe, right middle lobe and right lower lobe pulmonary arteries. Mediastinum and pulmonary melvin: [ No mass or adenopathy.] Axillary/intramammary and supraclavicular: [ No mass or adenopathy.] Heart and great vessels: [ Normal heart size.[ [ No pericardial effusion.] [ No aneurysm.] Moderate atherosclerotic disease in the thoracic aorta. Chest Wall: [ Unremarkable.] Upper Abdomen: There is a 9 mm nonobstructing calcification in the left kidney. Spleen is heterogeneous. There are a few probable gallstones in the gallbladder. Nonspecific fat stranding visualized in the upper abdomen. Several indeterminate liver lesions, the largest measures 2.9 cm. A liver mass CT is recommended. Osseous structures: [ No acute fracture or destructive lesion.] [ Multilevel degenerative change in the visualized spine.] Probable old fracture of the left mid scapula. Correlate clinically. Probable old left-sided rib fractures. Additional findings: [ None of significance.] IMPRESSION: 1. Small pulmonary emboli in the right upper lobe, right middle lobe and right lower lobe pulmonary arteries. 2. Several indeterminate liver lesions, the largest measures 2.9 cm. A malignant process is to be excluded. A liver mass CT is recommended. 3. There is a 5 mm subpleural nodule in the lingula. A follow-up chest CT in 3 months is recommended. 4. Spleen is heterogeneous. 5. There is a 5 mm nonobstructing calcification in the left kidney. 6. Nonspecific fat stranding visualized the upper abdomen. A CT of the abdomen and pelvis with contrast is recommended. The findings were relayed to Dr. Donis, an emergency room physician working with the patient, on 06/19/2025 at 2:10 PM by mary Sanchez x-ray technologists. Dr. Baugh discussed the findings of the case with Laura who relayed the message to Dr. Donis on 06/19/2025 at 2:[address] Donis was already aware of the findings. Reviewed, dictated and finalized at location Q. IMPRESSION: 1. Small pulmonary emboli in the right upper lobe, right middle lobe and right lower lobe pulmonary arteries. 2. Several indeterminate liver lesions, the largest measures 2.9 cm. A malignan t process is to be excluded. A liver mass CT is recommended. 3. There is a 5 mm subpleural nodule in the lingula. A follow-up chest CT in 3 months is recommended. 4. Spleen is heterogeneous. 5. There is a 5 mm nonobstructing calcification in the left kidney. 6. Nonspecific fat stranding visualized the upper abdomen. A CT of the abdomen and pelvis with contrast is recommended. The findings were relayed to Dr. Donis, an emergency room physician working with the patient, on 06/19/2025 at 2:10 PM by mary Sanchez x-ray technologists. Dr. Baugh discussed the findings of the case with Laura who relayed the message to Dr. Donis on 06/19/2025 at 2:[address] Donis was already aware of the f indings.
--- NOTE | ~2025-06-18 | XR_ITS ---
EXAMINATION: XR chest 1V 06/18/2025 21:38 INDICATION: Left-sided chest pain TECHNIQUE:PA upright frontal images of the chest were obtained COMPARISON: None FINDINGS: The lungs are clear. The cardiomediastinal silhouette is within normal limits. There are no pleural effusions. There is no pneumothorax suspected. Fracture of the left mid scapula of indeterminate age. Possible old left-sided rib fractures. IMPRESSION: 1: NO ACUTE CARDIOPULMONARY DISEASE. 2. Mildly displaced fracture of the left mid scapula of indeterminate age. Correlate clinically. 3. Possible old left-sided rib fractures. Correlate clinically. Reviewed, dictated and finalized at location Q. IMPRESSION: 1: NO ACUTE CARDIOPULMONARY DISEASE. 2. Mildly displaced fracture of the left mid scapula of indeterminate age. Nabeel elate clinically. 3. Possible old left-sided rib fractures. Correlate clinically.
--- NOTE | 2025-06-18 21:14 | ECG_ITS ---
Test Date: 2025-06-18 21:21:11 Measurements Intervals [place] Rate: 69 P: 78 MA: 157 QRS: 71 QRSD: 106 T: 75 QT: 396 QTc: 425 Interpretive Statements SINUS RHYTHM NONSPECIFIC ST SEGMENT CHANGES INTERPRETATION BASED ON A DEFAULT AGE OF 40 YEARS No previous ECG available for comparison Electronically Signed On 06-19-2025 10:32:26 CDT by Yuri Larose M.D.
--- NOTE | 2025-06-18 21:15 | ED_ITS ---
HPI - General Adult General Chief complaint: Chest Pain Stated complaint: Chest Pain/Trouble Breathing Time Seen by Provider: 06/18/25 21:12 History of Present Illness HPI narrative: Ed is a 64M with a PMH of CLL, hidradenitis suppurativa, tobacco abuse, chronic upper back pain and cataracts that presented to the ED with severe chest pain that radiates to the back and was not helped by hydrocodone he received yesterday. He has had it for days but it became much worse a few hours ago. It is left sided CP that does not radiate. No vomiting or syncope. Related Data Home Medications ?Medication ?Instructions ?Recorded ?Confirmed ?Last Taken ?Type acetaminophen 650 mg 1,300 mg PO Q12H PRN Pain 03/27/24 01/03/24 History tablet,extended release multivitamin 1 tablet PO DAILY 12/23/23 0 03/27/24 5 Days Ago History ~12/30/23 Allergies Allergy/AdvReac Type Severity Reaction Status Date / Time No Known Allergies Allergy Verified 06/17/25 03:18 Review of Systems 2 Review of Systems: All systems reviewed & are unremarkable except as noted in HPI and below PMFSH Past Medical History Medical History Leukemia Cataract associated with other syndromes Medical history non-contributory Surgical History Surgical History Hidradenitis suppurativa 01/04/24 Excision left groin hidradenitis History of back surgery Family History Family History Mother Diabetes mellitus Rectal cancer Father History of kidney cancer Social History Social History Smoking packs per day: 0.75 Smoking cigarettes per day: 15.0 Years smoked: 47 Smoking pack-years: 35.25 Smoking status: Current every day smoker Tobacco type: cigarettes Alcohol intake: never Do You Feel Safe in your Home?: Yes Lack of Transportation: No Lack of Food: Never True Current Housing: I Have Housing Concerned About Future Housing: No Difficulty Paying Gas/Electric Bills: No Difficulty Paying for Meds: No Currently Unemployed: YES Education: High School Diploma/GED Difficulty w/ Childcare or Family Care: No Living arrangements: with family Additional living arrangements comments: ALBERT Occupation/Education: occupation Additional occupation/education comments: [employer] Gender identity (if verbalized by the patient): Male Spiritual care concerns: No Exam 2 Const: General: cooperative, healthy appearing, comfortable, no acute distress, well developed, alert, awake and Physically active O rientation/consciousness: oriented to person, oriented to place and oriented to time HENMT: Head: normal to inspection, normocephalic and atraumatic Ears: h earing grossly normal bilaterally and external ears normal Face/Nose/Sinus: N ormal external nose present Eyes: General: appearance normal, both eyes and all related structures P eriorbital: periorbital findings normal Sclera: sclerae normal Pupils: E qual, round and reactive pupils present Neck: Neck: normal visual inspection Chest: Chest palpation & inspection: normal inspection of the chest Resp: Effort & Inspection: normal respiratory effort, able to speak in complete sentences and no respiratory distress Auscultation: clear to auscultation bilaterally Cardio: Jugular venous distension: no JVD Rate: regular rate Rhythm: r egular rhythm Skin: General skin exam: normal color and no rashes or lesions noted Neuro: General: oriented to person, oriented to place and oriented to time Cranial nerves: Yes Equal, round and reactive pupils present Extrem: General: normal to inspection Course Course Emergency Course: Ordered labs, EKG, CXR EKG showed NSR with a rate of 69, normal axis and no ectopy. (automated read is ST elevation in II/AvF but his is not appreciated and there is baseline interference) Leukocytosis with WBC of 25, but he just started prednisone recently Chemistries showed mild hyponatremia, mild transaminitis, and mildly elevated BNP. Troponin was normal. On rexamination he stated the the chest pain was ripping to his back so a CT was ordered as well as morphine. CTA chest: Impression: Positive for pulmonary emboli in the right upper lobe subsebmental arterial branches. No CT evidence of right heart strain. Low-attenuation lesions in the liver, concerning for metastasis. He was given a dose of lovenox and apixaban was sent to the pharmacy Vital Signs Vital signs: Vital Signs Temperature 97.5 F L 06/18/25 21:08 Pulse Rate 80 06/18/25 21:08 Respiratory Rate 18 06/18/25 21:08 Blood Pressure 149/79 H 06/18/25 21:08 Pulse Oximetry 99 06/18/25 21:08 Oxygen Delivery Room Air 06/18/25 21:08 Temperature 97.5 F L 06/18/25 21:08 Pulse Rate 72 06/19/25 00:01 Respiratory Rate 18 06/19/25 00:01 Blood Pressure 156/77 H 06/19/25 00:01 Pulse Oximetry 94 06/19/25 00:01 Oxygen Delivery Room Air 06/19/25 00:01 Medical Decision Making Vital Signs Vital Signs: Vital Signs Temperature 97.5 F L 06/18/25 21:08 Pulse Rate 80 06/18/25 21:08 Respiratory Rate 18 06/18/25 21:08 Blood Pressure 149/79 H 06/18/25 21:08 Pulse Oximetry 99 06/18/25 21:08 Oxygen Delivery Room Air 06/18/25 21:08 Temperature 97.5 F L 06/18/25 21:08 Pulse Rate 72 06/19/25 00:01 Respiratory Rate 18 06/19/25 00:01 Blood Pressure 156/77 H 06/19/25 00:01 Pulse Oximetry 94 06/19/25 00:01 Oxygen Delivery Room Air 06/19/25 00:01 Lab Data 06/18/25 22:04 06/18/25 22:04 Labs: Lab Results 06/18/25 Range/Units 22:04 WBC 25.4 H (4.8-10.8) K/mm3 RBC 4.16 L (4.70-6.10) M/mm3 Hgb 12.5 (12.4-15.3) g/dL Hct 37.0 (37.0-46.0) % MCV 88.9 (78.0-102.0) fL MCH 30.0 (27.0-31.0) pg MCHC 33.8 (32-36) g/dL RDW 14.7 H (11.6-14.4) % Plt Count 337 (150-420) K/mm3 MPV 10.1 (8.7-11.0) fl Immature Gran % (Auto) Not Reportable Neut % (Auto) Not Reportable Lymph % (Auto) Not Reportable [place] % (Auto) Not Reportable Eos % (Auto) Not Reportable Baso % (Auto) Not Reportable Lymph # (Auto) Not Reportable [place] # (Auto) Not Reportable Eos # (Auto) Not Reportable Baso # (Auto) Not Reportable Abs Immat Gran (auto) Not Reportable Absolute Neuts (auto) Not Reportable Absolute Nucleated RBC Not Reportable Total Counted 100 Neutrophils % (Manual) 70 (46-73) % Band Neutrophils % 1 (0-6) % Lymphocytes % (Manual) 25 (18-44) % Monocytes % (Manual) 4 (3-9) % Nucleated RBC % Not Reportable Abs Neuts (Manual) 18.03 H (1.3-6.7) K/mm3 Abs Lymphs (Manual) 6.35 H (1.1-4.5) K/mm3 Abs Monocytes (Manual) 1.01 H (0.1-0.90) K/mm3 Platelet Estimate Adequate (Adequate) Schistocytes None seen PT 11.9 (9.50-12.1) Seconds INR 1.1 Sodium 133 L (137-145) mmol/L Potassium 4.3 (3.4-5.0) mmol/L Chloride 97 L (98-107) mmol/L Carbon Dioxide 28 (22-30) mmol/L Anion Gap 8 (4-12) mmol/L BUN 31 H (9-20) mg/dL Creatinine 0.89 (0.7-1.3) mg/dL Estim Creat Clear Calc 79 ml/min Estimated GFR > 60 (59 - ) Glucose 104 (65-110) mg/dL Calculated Osmolality 282 L (285-295) mOsm/kg Calcium 9.6 (8.4-10.2) mg/dL Total Bilirubin 0.9 (0.2-1.3) mg/dL AST 69 H (17-59) U/L ALT 84 H (6-50) U/L Alkaline Phosphatase 230 H (38-126) U/L Troponin I < 0.012 (0.000-0.034) ng/mL NT-Pro-B Natriuret Pep 198 H (19.9-100) pg/mL Total Protein 6.8 (6.3-8.2) g/dL Albumin 4.1 (3.5-5.1) g/dL Discharge Plan Discharge Clinical Impression: Pulmonary embolism, Metastases to the liver Patient Disposition: Home Condition: Stable Instructions: Pulmonary Embolism (ED) Additional Instructions: Please follow up with you oncologist/agricultural services director as well as primary care KEVIN for further care of the blood clots in your lung as well as the new liver lesions. Please feel free to return for any new, concerning, or worsening symptoms. Patient Language: Mongolian Prescriptions: New oxycodone 5 mg tablet 5 mg PO Q8H PRN (Reason: pain) Qty: 10 0RF apixaban 5 mg tablet See Rx Instructions .ROUTE .COMPLEX Qty: 42 0RF Rx Instructions: 10 mg PO bid x7 days, then 5 mg PO bid No Action prednisone 20 mg tablet 40 mg PO DAILY 3 Days Qty: 6 0RF hydrocodone-acetaminophen 5-325 mg tablet 1 tablet PO Q8H PRN (Reason: pain) Qty: 20 0RF hydrocodone-acetaminophen 5-325 mg tablet 1 tablet PO Q8H PRN (Reason: pain) Qty: 20 0RF multivitamin Tablet 1 tablet PO DAILY acetaminophen 650 mg Tablet Extended Release 1,300 mg PO Q12H PRN (Reason: Pain) Follow-up/Referrals: Tacho Manjarrez MD [Primary Care Provider, Internal Medicine]
--- NOTE | 2025-06-18 21:41 | PC.NURSE ---
PATIENT CURRENTLY IN ROOM 5. WILL MOVE TO APPROPRIATE ROOM WHEN AVAILABLE. FAMILY MEMBER AT THE BEDSIDE
--- NOTE | 2025-06-18 22:13 | PC.NURSE ---
PATIENT MOVED TO ROOM 4. PLACED ON AUDIO VISUAL SECRETARY. FAMILY AT THE BEDSIDE. CALL LIGHT IN REACH
[2025-06-18 22:17] LABS: Hematocrit 37.0 % (37.0-46.0); Hemoglobin 12.5 g/dL (12.4-15.3); Mean Corpuscular HGB Conc 33.8 g/dL (32-36); Mean Corpuscular Hemoglobin 30.0 pg (27.0-31.0); Mean Corpuscular Volume 88.9 fL (78.0-102.0); Platelet Count Result 337 K/mm3 (150-420); Red Blood Count 4.16 M/mm3 (4.70-6.10); White Blood Count 25.4 K/mm3 (4.8-10.8)
[2025-06-18 22:23] LABS: Alanine Aminotransferase 84 U/L (6-50); Albumin Level 4.1 g/dL (3.5-5.1); Alkaline Phosphatase 230 U/L (38-126); Anion Gap 8 mmol/L (4-12); Aspartate Amino Transferase 69 U/L (17-59); Bilirubin,Total 0.9 mg/dL (0.2-1.3); Blood Urea Nitrogen 31 mg/dL (9-20); Calcium 9.6 mg/dL (8.4-10.2); Carbon Dioxide 28 mmol/L (22-30); Chloride 97 mmol/L (98-107); Estimated CRCL calculation 79 ml/min; Estimated Glomerular Filt Rate > 60; Glucose 104 mg/dL (65-110); Osmolality Calculated 282 mOsm/kg (285-295); Potassium 4.3 mmol/L (3.4-5.0); Sodium 133 mmol/L (137-145); Total Protein 6.8 g/dL (6.3-8.2)
[2025-06-18] MEDS: MORPHINE SULFATE (*CRX) 4 MG/ML INJ IV PUSH (22:26)
[2025-06-18 22:30] LABS: INR 1.1; Prothrombin Time 11.9 Seconds (9.50-12.1)
[2025-06-18 22:34] LABS: NT Pro B Type Natriuretic Pept 198 pg/mL (19.9-100); Troponin I < 0.012 ng/mL (0.000-0.034)
--- NOTE | 2025-06-18 23:00 | PC.NURSE ---
RESTING IN ROOM. NO NEEDS VOICED. CALL LIGHT IN REACH
[2025-06-18 23:02] LABS: Band Neutrophils Percent 1 % (0-6); Lymphocytes Absolute Manual 6.35 K/mm3 (1.1-4.5); Lymphocytes Percent Manual 25 % (18-44); Monocytes Absolute Manual 1.01 K/mm3 (0.1-0.90); Monocytes Percent Manual 4 % (3-9); Neutrophils Absolute Manual 18.03 K/mm3 (1.3-6.7); Neutrophils Percent Manual 70 % (46-73); Schistocytes None Seen; Total Cells Counted 100
--- NOTE | 2025-06-18 23:43 | PC.NURSE ---
PATIENT AMBULATED TO THE BATHROOM AND BACK TO ROOM. CALL LIGHT IN REACH. COVERED WITH BLANKET IN THE ROOM. FAMILY AT HIS SIDE
--- NOTE | 2025-06-19 | CONSULT_PTH ---
PATIENT: Acosta Osorio LOC: [facility] U#:[id number] AGE/SX: 64/M ROOM: RE06/18/[address]: Ramo Giraldo DO : 1960 BED: DIS: 06/19/2025 SPEC #: [id number] RECD: 06/19/25 07:10 STATUS: [facility] REQ #: [id number] KERRY: 06/19/25 00:[address]: Ramo Giraldo DEPT: [facility] Consult RECD BY: Jenny Fagan MLT, ([facility]) ENTERED: 06/19/25 07:11 SP TYPE: Consult OTHR DR: Tacho Manjarrez MD Tissues: A - Peripheral Smear Procedures: Hematology Consult
[2025-06-19 00:01] VITALS: BP 156/77; PULSE 72; RESP 18; O2SAT 94
--- NOTE | 2025-06-19 00:25 | PC.NURSE ---
DR KAUFMAN AT THE BEDSIDE
[2025-06-19 00:31] VITALS: BP 153/77; PULSE 76; RESP 18; O2SAT 93
[2025-06-19] MEDS: MORPHINE SULFATE (*CRX) 4 MG/ML INJ IV PUSH (01:01)
[2025-06-19] MEDS: ENOXAPARIN 100 MG/ML SYRINGE 94 MG SUB-Q (01:01)
[2025-06-19 01:05] VITALS: BP 149/81; PULSE 74; RESP 18; O2SAT 92
--- NOTE | 2025-06-19 01:14 | PC.NURSE ---
PATIENT RESTING ON STRETCHER. WALKED TO THE BATHROOM AND BACK TO ROOM WITHOUT DIFFICULTY. REPEATED QUESTIONS ABOUT WHAT LOVENOX IS FOR. EDUCATION PROVIDED SEVERAL DIFFERENT WAYS FOR PATIENT TO UNDERSTAND. FAMILY MEMBER AT THE BEDSIDE. SHE VERBALIZED UNDERSTANDING OF MEDICATION. PATIENT HAS CALL LIGHT IN REACH
== END 2025-06-19 01:42 | disposition home or self-care (01) ==
PROVIDERS: Emergency Provider Family Medicine; PCP Internal Medicine
DX: I26.99 Other pulmonary embolism without acute cor pulmonale (principal); C78.7 Secondary malignant neoplasm of liver and intrahepatic bile duct; C91.10 Chronic lymphocytic leukemia of B-cell type not having achieved remission; F17.210 Nicotine dependence, cigarettes, uncomplicated
CPT/HCPCS: 36415; 71045; 71275; 74178; 80053; 83880; 84484; 85025; 85610; 93005; 96372; 96374; 96376; 99284; J1650; J2270; Q9967

== ENCOUNTER 2025-06-19 14:54 | Outpatient (CLI) | payer MEDICARE, OTHER, SELFPAY ==
--- NOTE | ~2025-06-19 | CT_ITS ---
EXAMINATION: CT abdomen pelvis wo/w con DATE: 06/19/2025 15:28 INDICATION: Liver masses. TECHNIQUE: Computed tomography (CT) of the abdomen and pelvis was performed without and with 100 cc Omnipaque 350 intravenous contrast. The dose-length product was 1772.93 mGy-cm. Automated exposure control and iterative reconstruction technique were employed. COMPARISON: CT dated 06/18/2025. FINDINGS: There are multiple hypovascular liver masses involving all segments of the liver, compatible with metastases. There is a conglomerate mass measuring approximately 7.1 x 3.6 cm located centrally in the liver. There is dependent atelectasis. There is mild atherosclerosis. Heart size normal. No significant pleural or pericardial effusion. There is an enlarged portacaval lymph node measuring 1.5 cm. There is mild prominence of the common bile duct. Gallbladder is contracted containing stones. The spleen, pancreas, adrenal glands are unremarkable. There is a 2 mm nonobstructing right renal stone. There is a small subcentimeter cyst of the left kidney. There is peritoneal stranding and nodularity, compatible with peritoneal carcinomatosis. Nonobstructive bowel gas pattern. Mild lower thoracic and lumbar spondylosis. No focal lytic or blastic lesions are seen. IMPRESSION: 1. Multiple hypovascular hepatic masses which are highly suspicious for metastatic disease. 2: Peritoneal stranding and nodularity with abnormal soft tissue extending from the inferior hepatic surface compatible with peritoneal carcinomatosis. Given the constellation of findings differential diagnosis includes metastatic disease (most likely considerations are GI, ovarian and pancreaticobiliary, and primary hepatic malignancy with peritoneal spread. 3: Mildly enlarged portacaval lymph node, likely metastatic. 4: Bilateral nonobstructing renal stones. 5: Cholelithiasis. Reviewed, dictated and finalized at location O. IMPRESSION: 1. Multiple hypovascular hepatic masses which are highly suspicious for metasta tic disease. 2: Peritoneal stranding and nodularity with abnormal soft tissue extending fro m the inferior hepatic surface compatible with peritoneal carcinomatosis. Given the constellation of findings differential diagnosis includes metastatic disea se (most likely considerations are GI, ovarian and pancreaticobiliary, and prim lamar hepatic malignancy with peritoneal spread. 3: Mildly enlarged portacaval lymph node, likely metastatic. 4: Bilateral nonobstructing renal stones. 5: Cholelithiasis.
--- OUTSIDE RECORDS SUMMARY | 2025-06-19 15:00 | XMS_ITS | Clinical Summary ---
Author Organization [facility] Address [facility] [place] [address] Care Team Providers Care Forestry Aid Name Role Phone Tacho Manjarrez MD Primary Care Provider [phone] Allergies No known active allergies Medications ciprofloxacin (CIPRO) 500 MG tablet Take 1 tablet (500 mg total) by mouth 3 (three) times daily. Active metroNIDAZOLE (FLAGYL) 500 MG tablet Take 1 tablet (500 mg total) by mouth 2 (two) times daily. 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 Gender Identity Not on file Sexual Orientation Not on file Last Filed Vital Signs Vital Sign Reading Time Taken Comments Blood Pressure 167/87 12/25/2023 10:15 AM CDT Pulse 76 12/25/2023 10:15 AM CDT Temperature 36.5 C (97.7 F) 12/25/2023 9:45 AM CDT Respiratory Rate 16 12/25/2023 10:15 AM CDT Oxygen Saturation 100% 12/25/2023 10:15 AM CDT Inhaled Oxygen Concentration - - Weight 102.1 kg (225 lb) 12/17/2023 3:18 PM HEALTHCARE ECONOMICS CONSULTANT Height 182.9 cm (6') 12/17/2023 3:18 PM HEALTHCARE ECONOMICS CONSULTANT Body Mass Index 30.52 12/17/2023 3:18 PM HEALTHCARE ECONOMICS CONSULTANT Plan of Treatment Health Maintenance Due Date Last Done Comments Hepatitis C 1978 Annual Medicare Wellness Visit 2023 COVID-19 Vaccine ( season) 2025 11/06/2023, 10/16/2021, 01/25/2021, Additional history exists DTaP, Tdap and Td Vaccines (2 - Td or Tdap) 05/21/2031 05/21/2021 Colorectal Cancer Screening Colonoscopy (10 Years) 12/24/2033 12/25/2023, 12/25/2023 Pneumococcal Vaccine: 50+ Years Completed 10/21/2023 RSV Immunization or 60+ Years Completed 10/21/2023 Zoster Vaccines Completed 12/11/2023, 10/06/2023 Meningococcal B Vaccine Aged Out No l onger eligible based on patient's age to complete this topic Meningococcal Vaccine Aged Out No joslyn sury eligible based on patient's age to complete this topic RSV Immunizations Under 20 Months Aged Out No longer eligible based on patient's age to complete this topic Procedures Procedure Name Priority Date/Time Associated Diagnosis Comments COLONOSCOPY 12/25/2023 6:41 AM CDT from Last 3 Months or Most Recently Relevant to Health Maintenance Results * Colonoscopy (12/25/2023 6:41 AM CDT) Orville Huddleston MD GI PROCEDURE ORDERABLES Final Result from Last 3 Months or Most Recently Relevant to Health Maintenance Insurance MEDICARE [employer] Care Teams Forestry [employer] Relationship Specialty Start Date End Date Tacho Manjarrez MD [address] [place] [address] PCP - General INTERNAL MEDICINE 12/25/23
== END 2025-06-19 14:55 | disposition home or self-care (01) ==
PROVIDERS: PCP Internal Medicine; Visit Provider Internal Medicine
DX: R16.0 Hepatomegaly, not elsewhere classified (principal); K76.9 Liver disease, unspecified; R93.5 Abnormal findings on diagnostic imaging of other abdominal regions, including retroperitoneum; R93.2 Abnormal findings on diagnostic imaging of liver and biliary tract; N20.0 Calculus of kidney; K80.20 Calculus of gallbladder without cholecystitis without obstruction; R59.0 Localized enlarged lymph nodes
CPT/HCPCS: 74178; Q9967

== ENCOUNTER 2025-06-20 10:32 | Outpatient (CLI) | payer MEDICARE, OTHER, SELFPAY ==
[2025-06-20 10:53] LABS: Hematocrit 37.2 % (37.0-46.0); Hemoglobin 12.2 g/dL (12.4-15.3); Immature Granulocyte Percent A 1.0 % (0.0-0.0); Lymphocytes Absolute Auto 5.28 K/mm3 (1.10-4.50); Mean Corpuscular HGB Conc 32.8 g/dL (32-36); Mean Corpuscular Hemoglobin 29.8 pg (27.0-31.0); Mean Corpuscular Volume 90.7 fL (78.0-102.0); Nucleated Red Blood Cells Absolute Auto 0.00 K/mm3 (0.00-0.00); Nucleated Red Blood Cells Perc 0.0 % (0-0.0); Platelet Count Result 317 K/mm3 (150-420); Red Blood Count 4.10 M/mm3 (4.70-6.10); White Blood Count 17.6 K/mm3 (4.8-10.8)
[2025-06-20 11:16] LABS: Alanine Aminotransferase 124 U/L (6-50); Albumin Level 4.1 g/dL (3.5-5.1); Alkaline Phosphatase 246 U/L (38-126); Anion Gap 7 mmol/L (4-12); Aspartate Amino Transferase 98 U/L (17-59); Bilirubin,Total 1.1 mg/dL (0.2-1.3); Blood Urea Nitrogen 20 mg/dL (9-20); CRP 5.8 mg/dL (<1.0); Calcium 9.5 mg/dL (8.4-10.2); Carbon Dioxide 31 mmol/L (22-30); Chloride 98 mmol/L (98-107); Estimated Glomerular Filt Rate > 60; Glucose 137 mg/dL (65-110); Osmolality Calculated 286 mOsm/kg (285-295); Potassium 4.2 mmol/L (3.4-5.0); Sodium 136 mmol/L (137-145); Total Protein 6.7 g/dL (6.3-8.2)
--- OUTSIDE RECORDS SUMMARY | 2025-06-20 12:16 | XMS_ITS | Clinical Summary ---
Author Organization [facility] Address [facility] [place] [address] Care Team Providers Care Liner Installer Name Role Phone Tacho Manjarrez MD Primary Care Provider [phone] Allergies No known active allergies Medications ciprofloxacin [...] on file Legal Sex Male 1:59 PM GRAVEL [employer] Gender Identity Not on file Sexual Orientation [...] 102.1 kg (225 lb) 12/17/2023 3:18 PM GRAVEL HAULER Height 182.9 cm (6') 12/17/2023 3:18 PM GRAVEL HAULER Body Mass Index 30.52 12/17/2023 3:18 PM GRAVEL HAULER Plan of Treatment Health Maintenance Due Date [...] to Health Maintenance Insurance MEDICARE [employer] Care Teams Liner Installer Relationship Specialty Start Date End Date Tacho Manjarrez MD [address] [place] [address] PCP - General INTERNAL MEDICINE 12/25/23
[2025-06-21 15:09] LABS: CA 19-9 CA19-9 U/mL (0-35)
== END 2025-06-20 10:33 | disposition home or self-care (01) ==
PROVIDERS: PCP Internal Medicine; Visit Provider Internal Medicine
DX: C22.9 Malignant neoplasm of liver, not specified as primary or secondary (principal); C91.10 Chronic lymphocytic leukemia of B-cell type not having achieved remission; R97.8 Other abnormal tumor markers; R79.89 Other specified abnormal findings of blood chemistry
CPT/HCPCS: 36415; 80053; 82105; 82378; 85025; 86140; 86301

== ENCOUNTER 2025-06-27 12:18 | Outpatient (CLI) | payer MEDICARE, OTHER, SELFPAY ==
--- NOTE | ~2025-06-27 | US_ITS ---
EXAMINATION: US venous doppler [facility] DATE: 06/27/2025 12:59 INDICATION: Pulmonary embolism TECHNIQUE: Grayscale ultrasound images without and with compression and Doppler ultrasound images of the bilateral lower extremity veins were obtained. COMPARISON: None. FINDINGS: There is occlusive appearing noncompressible thrombus in the right popliteal vein, posterior tibial veins and peroneal veins. The visualized portions of right common femoral vein, profunda (deep) femoral vein, femoral vein, gastrocnemius vein and greater saphenous vein outflow are patent. Additional noncompressible occlusive appearing thrombus in the left posterior tibial veins, peroneal veins, gastrocnemius vein and soleal vein. The visualized portions of left common femoral vein, profunda femoral vein, femoral vein, popliteal vein and greater saphenous vein outflow are patent. IMPRESSION: 1. Bilateral [id number] deep venous anastomosis beginning at the popliteal veins and extending into the bilateral posterior tibial veins, peroneal veins and left gastrocnemius vein and left soleal vein. Reviewed, dictated and finalized at location A. IMPRESSION: 1. Bilateral [id number] deep venous anastomosis beginning at the popliteal veins and extending into the bilateral posterior tibial veins, peroneal veins and left gastrocnemius vein and left soleal vein.
== END 2025-06-27 12:19 | disposition home or self-care (01) ==
LOC: CHSIMG 12:21
PROVIDERS: PCP Internal Medicine; Visit Provider Internal Medicine Hematology
DX: I26.99 Other pulmonary embolism without acute cor pulmonale (principal); I82.431 Acute embolism and thrombosis of right popliteal vein; I82.443 Acute embolism and thrombosis of tibial vein, bilateral; I82.453 Acute embolism and thrombosis of peroneal vein, bilateral; I82.462 Acute embolism and thrombosis of left calf muscular vein; I82.4Z2 Acute embolism and thrombosis of unspecified deep veins of left distal lower extremity
CPT/HCPCS: 93970

== ENCOUNTER 2025-06-29 14:18 | Outpatient (CLI) | payer MEDICARE, OTHER, SELFPAY ==
--- NOTE | ~2025-06-29 | MR_ITS ---
EXAMINATION: MR thoracic spine wo con DATE: 06/29/2025 14:57 INDICATION: Thoracic spine pain. TECHNIQUE: Magnetic resonance imaging (MRI) of the thoracic spine was performed without intravenous contrast. COMPARISON: Thoracic spine MRI 07/14/2024 FINDINGS: There is 6 degrees dextrocurvature of thoracic spine. There is mild chronic height loss of T7-T12 vertebral bodies. There is mildly decreased disc height at many levels. There is multilevel severe facet joint osteophytes. At T7-T8, there is a left central extrusion with mild central canal stenosis. There is multilevel mild neural foraminal stenosis on either side. On the right, there is moderate neural foraminal stenosis at T2-T3, T3-T4, and T9-T10. On the left, there is moderate neural foraminal stenosis at T8-T9. The spinal cord signal intensity is normal. The conus medullaris is at L1. IMPRESSION: 1. Moderate thoracic spondylosis. Reviewed, dictated and finalized at location E.
--- OUTSIDE RECORDS SUMMARY | 2025-06-29 14:23 | XMS_ITS | Clinical Summary ---
Author Organization [facility] Address [address] [place] [address] Care Team Providers Care Preconstruction Manager Name Role Phone Tacho Manjarrez MD Primary Care Provider [phone] Allergies No known active allergies Medications apixaban (ELIQUIS) 5 MG tablet Take 1 tablet (5 mg total) by mouth 2 (two) times daily. Active morphine (MSIR) 15 MG tablet Take 1 tablet (15 mg total) by mouth every 12 (twelve) hours as needed (pain). Active oxyCODONE immediate release (ROXICODONE) 10 MG immediate release tablet Take 1 tablet (10 mg total) by mouth every 6 (six) hours as needed for Pain (pain). Active ciprofloxacin (CIPRO) 500 MG tablet Take 1 tablet (500 mg total) by mouth 3 (three) times daily. 06/26/20 Discontinu ed(Error) metroNIDAZOLE (FLAGYL) 500 MG tablet Take 1 tablet (500 mg total) by mouth 2 (two) times daily. 06/26/20 Discontinu ed(Error) Active Problems No known active problems Encounters Date Type Department Care Team Description 06/26/2025 6:57 AM CDT - 06/26/2025 11:59 PM CDT Hospital Encounter [facility] [address] [place] [address] Franki Cadena MD Arrived Discharge Disposition: Home or Self Care (Routine Discharge) 06/26/2025 6:50 AM CDT - 06/26/2025 6:56 AM CDT Hospital Encounter [facility] Interventional Radiology [address] [place] [address] Hyacinth Camargo MD Arrived Discharge Disposition: Home or Self Care (Routine Discharge) 06/23/2025 Telephone [facility] Interventional Radiology [facility] [place] [address] Papo Betancur PA-C Appointment Request from Last 3 Months Social History Tobacco Use Types Packs/Day Years Used Date Smoking Tobacco: Every Day Cigarettes Smokeless Tobacco: Never Tobacco Cessation:Ready to Q uit: Not Asked; Counseling Given: Not Answered Alcohol Use Standard Drinks/Week Comments Never 0 (1 standard drink = 0.6 oz pur e alcohol) Sex and Gender Information Value Date Recorded Sex Assigned at Male 06/26/2025 6:46 AM CDT 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 Gender Identity Not on file Sexual Orientation Not on file Last Filed Vital Signs Vital Sign Reading Time Taken Comments Blood Pressure 154/72 06/26/2025 1:00 PM CDT Pulse 86 06/26/2025 1:00 PM CDT Temperature 36.5 C (97.7 F) 12/25/2023 9:45 AM CDT Respiratory Rate 16 06/26/2025 1:00 PM CDT Oxygen Saturation 99% 06/26/2025 1:00 PM CDT Inhaled Oxygen Concentration - - Weight 94.8 kg (209 lb) 06/26/2025 8:26 AM CDT Height 182.9 cm (6') 06/26/2025 8:26 AM CDT Body Mass Index 28.35 06/26/2025 8:26 AM CDT Plan of Treatment Health Maintenance Due Date Last Done Comments Hepatitis C 1978 AAA SCREENING 2023 Annual Medicare Wellness Visit 2023 COVID-19 Vaccine [...] Procedure Name Priority Date/Time Associated Diagnosis Comments CT GD BX TARGETED LIVER Routine 06/26/2025 11:11 AM CDT CLL (chronic lymphocytic leukemia) ([facility]/HCC HHS/HCC) IR PORTACATH INSERT Routine 06/26/2025 1 0:28 AM CDT CLL (chronic lymphocytic leukemia) (CMS/HCC HHS/HCC) CBC W/DIFF AUTOMATED Routine 06/26/2025 7:07 AM CDT Chronic lymphatic leukemia (CMS/HCC HHS/HCC) PROTHROMBIN TIME, VENOUS Routine 06/26/2025 7:07 AM CDT Chronic lymphatic leukemia ([facility]/HCC HHS/HCC) PATHOLOGY Routine 06/26/2025 12:00 AM CDT COLONOSCOPY 12/25/2023 6:41 AM CDT from Last 3 Months or Most Recently Relevant to Health Maintenance Results * CT GD BX TARGETED LIVER (06/26/2025 11:11 AM CDT) Anatomical Region Laterality Modality Abdomen Computed Tomogra phy 06/26/2025 11:0 7 AM CDT Impressions 06/26/2025 11:15 AM CDT IMPRESSION: Successful CT-guided biopsy of segment 2 liver lesion. Ordered By: HYACINTH CAMARGO Interpreted By: Franki Cadena MD, 06/26/2025 11:07 AM Narrative 06/26/2025 11:15 AM CDT [facility] [address] [place], [place] [address] CT-guided biopsy of liver mass Indication: Multiple liver lesions. History of CLL. Evaluate liver involvement versus second primary. Following informed consent, including discussion of procedural risks, the patient was place in the supine position on the CT table and [place] protocol was observed to verify correct patient, site, and procedure to be performed. Preliminary CT images were obtained through the region of interest. A dose lowering technique was used for this procedure, which may include, but is not limited to, dose reduction technique, automated exposure control, the use of iterative reconstruction, and ALARA (As Low As Reasonably Achievable) / Image Gently techniques. A safe midline path of approach to a segment 2 liver lesion was chosen . Suitable skin site was marked. The site was prepped and draped in sterile fashion. Local anesthetic was administered with a 25 gauge needle. Under intermittent CT guidance, a 17-gauge coaxial introducer needle was advanced towards the lesion. Additional local anesthetic was administered at the liver capsule. The needle was in position along the left anterior margin of the target lesion. Position was confirmed by CT. 4 18-gauge core specimens were then obtained. A asphalt roller operator was present to confirm specimen adequacy. Post biopsy imaging showed no evidence of hematoma or other complication. Sterile dressing was applied. There were no immediate complications. Conscious sedation: Administered and monitored by a qualified interventional radiology nurse under supervision of the interventional radiologist. There was continuous monitoring of vital signs including pulse oximetry, end-tidal CO2, and EKG. Total intraservice or sgek-vn-qeel sedation time: 59 minutes (total combined time for port placement and liver biopsy). EBL: <10 mL Procedure Note Franki Cadena MD - 06/26/2025 [facility] [address] [place], [place] [address] CT-guided biopsy of liver mass Indication: Multiple liver lesions. History of CLL. Evaluate liverinvolvement versus second primary. Following informed consent, including discussion of procedural risks, thepatient was place in the supine position on the CT table and Universalprotocol was observed to verify correct patient, site, and procedure to beperformed. Preliminary CT images were obtained through the region of interest. A dose lowering technique was used for this procedure, which may include,but is not limited to, dose reduction technique, automated exposurecontrol, the use of iterative reconstruction, and ALARA (As Low AsReasonably Achievable) / Image Gently techniques. A safe midline path of approach to a segment 2 liver lesion was chosen .Suitable skin site was marked. The site was prepped and draped in sterilefashion. Local anesthetic was administered with a 25 gauge needle. Under[address]mitt[address] CT guidance, a 17- gauge coaxial introducer needle wasadvanced towards the lesion. Additional local anesthetic was administeredat the liver capsule. The needle was in position along the left anteriormargin of the target lesion. Position was confirmed by CT. 4 18-gauge corespecimens were then obtained. A asphalt roller operator was present to confirmspecimen adequacy. Post biopsy imaging showed no evidence of hematoma orother complication. Sterile dressing was applied. There were no immediate complications. Conscious sedation: Administered and monitored by a qualifiedinterventional radiology nurse under supervision of the interventionalradiologist. There was continuous monitoring of vital signs includingpulse oximetry, end-tidal CO2, and EKG. Total intraservice or xcig-fl-npgmvftoriqu time: 59 minutes (total combined time for port placement andliver biopsy). EBL: <10 mL IMPRESSION: Successful CT-guided biopsy of segment 2 liver lesion. Ordered By: HYACINTH CAMARGO Interpreted By: Franki Cadena MD, 06/26/2025 11:07 AM Hyacinth Camargo MD CT Final Result * IR PORTACATH INSERT (06/26/2025 10:28 AM CDT) Anatomical Region Laterality Modality Chest Interventional R adiology, Radiographic Imaging 06/26/2025 1:33 PM CDT Impressions 06/26/2025 1:35 PM CDT Impression: Procedure note for Infusaport placement. Ordered By: HYACINTH CAMARGO Interpreted By: Humberto Teixeira MD, 06/26/2025 1:33 PM Narrative 06/26/2025 1:35 PM CDT [address] [address] IR Procedure Note Pre op diagnosis: Multiple liver lesions. History of CLL. Jvkbha-q-Purw requested. Post Op Diagnosis: same Procedure: Infusaport placement Grafts/Implants: 8 Fr Bard Low Profile Power Port (CT Injectable) Radiologist: Lluvia Spa Supervisor: he Anesthesia: Local - 1% Lidocaine IV conscious sedation was administered by qualified interventional radiology nurse who had no other duties under direct supervision of the interventional radiologist with continuous monitoring including pulse, blood pressure, O2 sat and end tidal CO2. Intra-service sedation time with the radiologist present was 59 minutes - (total combined time for port placement and liver biopsy). Patient was reassessed immediately prior to administration of sedation medications. Technique /Findings: Procedure and risks were explained to the patient including risks of bleeding, vessel injury, infection, thrombosis, port malfunction, sedation etc. Informed consent was obtained. Preliminary ultrasound demonstrated patent right internal jugular vein. Permanent ultrasound image was recorded. The right neck and right upper chest were prepped and draped in sterile fashion. Maximal sterile barrier technique was utilized for the entire procedure including hand washing with conventional soap and water or an alcohol based hand rub as well as all elements of sterile ultrasound technique were utilized during this procedure. Patient received IV antibiotic prophylaxis for this procedure. Timeout was performed. 1% Lidocaine local anesthetic was administered in the right IJ region. Right internal jugular vein was accessed with real time ultrasound guidance and micropuncture technique and a guidewire advanced to the SVC followed by placement of micropuncture dilator. Following this, additional 1% Lidocaine local anesthetic was administered in the right upper chest wall region and short transverse incision was made in the right upper chest wall and a subcutaneous pocket was fashioned for the port . Power Port CT injectable low profile port was placed in the pocket and catheter tunneled to the jugular site. Through the micropuncture dilator, a stiff Glidewire was advanced under fluoroscopy down to the IVC. The venotomy tract was then dilated using sequential dilators and peel-away sheath was placed. The catheter was advanced through the valved peel-away sheath and positioned with tip in the upper right atrium while the peel-away sheath was removed. Permanent fluoroscopic image was obtained documenting port and catheter in satisfactory position. The catheter aspirated and flushed easily with no leakage seen. The pocket was then irrigated with Ancef solution. The subcutaneous tissues were then closed using running 4-0 Vicryl sutures. Skin closure was performed using running subcuticular 4-0 sutures followed by Dermabond. The jugular site was closed using Dermabond. Sterile dressing was applied. There were no complications. Final sponge count was correct. Drains: none Complications: none Estimated Blood Loss: <10 ml Specimens removed: none Condition: good. Patient then transferred to CT for liver biopsy. See separate dictated report. Radiation: Patient's radiation exposure - Reference Air Kerma (Ka,r) 8 mGy for this procedure. Procedure Note Humberto Teixeira MD - 06/26/[address] [address] IR Procedure Note Pre op diagnosis: Multiple liver lesions. History of CLL. Ligmhc-u-Zmsexoefnmvyu. Post Op Diagnosis: same Procedure: Infusaport placement Grafts/Implants: 8 Fr Bard Low Profile Power Port (CT Injectable) Radiologist: Lluvia Spa Supervisor: none Anesthesia: Local - 1% Lidocaine IV conscious sedation was administered by qualified interventionalradiology nurse who had no other duties under direct supervision of theinterventional radiologist with continuous monitoring including pulse,blood pressure, O2 sat and end tidal CO2. Intra-service sedation time withthe radiologist present was 59 minutes - (total combined time for portplacement and liver biopsy). Patient was reassessed immediately prior to administration of sedationmedications. Technique /Findings: Procedure and risks were explained to the patient including risks ofbleeding, vessel injury, infection, thrombosis, port malfunction, sedationetc. Informed consent was obtained. Preliminary ultrasound demonstrated patent right internal jugular vein.Permanent ultrasound image was recorded. The right neck and right upper chest were prepped and draped in sterilefashion. Maximal sterile barrier technique was utilized for the entire procedureincluding hand washing with conventional soap and water or an alcoholbased hand rub as well as all elements of sterile ultrasound techniquewere utilized during this procedure. Patient received IV antibiotic prophylaxis for this procedure. Timeout was performed. 1% Lidocaine local anesthetic was administered in the right IJ region.Right internal jugular vein was accessed with real time ultrasoundguidance and micropuncture technique and a guidewire advanced to the SVCfollowed by placement of micropuncture dilator. Following this, additional 1% Lidocaine local anesthetic was administeredin the right upper chest wall region and short transverse incision wasmade in the right upper chest wall and a subcutaneous pocket wasfashioned for the port . Power Port CT injectable low profile port wasplaced in the pocket and catheter tunneled to the jugular site. Throughthe micropuncture dilator, a stiff Glidewire was advanced underfluoroscopy down to the IVC. The venotomy tract was then dilated usingsequential dilators and peel-away sheath was placed. The catheter wasadvanced through the valved peel-away sheath and positioned with tip inthe upper right atrium while the peel-away sheath was removed. Permanentfluoroscopic image was obtained documenting port and catheter insatisfactory position. The catheter aspirated and flushed easily with noleakage seen. The pocket was then irrigated with Ancef solution. Thesubcutaneous tissues were then closed using running 4-0 Vicryl sutures.Skin closure was performed using running subcuticular 4-0 sutures followedby Dermabond. The jugular site was closed using Dermabond. Steriledressing was applied. There were no complications. Final sponge count was correct. Drains: none Complications: none Estimated Blood Loss: <10 ml Specimens removed: none Condition: good. Patient then transferred to CT for liver biopsy. Seeseparate dictated report. Radiation: Patient's radiation exposure - Reference Air Kerma (Ka,r) 8mGy for this procedure. Impression: Procedure note for Infusaport placement. Ordered By: HYACINTH CAMARGO Interpreted By: Humberto Teixeira MD, 06/26/2025 1:33 PM us Hyacinth Camargo MD INTERVENTIONAL RADIOL OGY Final Result * (ABNORMAL) PROTIME/INR, VENOUS (PROTHROMBIN TIME) (06/26/2025 7:07 AM CDT) PROTIME 13.6(H) 9.4 - 12.5 SEC 06/26/2025 7:31 AM CDT [facility] INR 1.2(H) 0.8 - 1.1 06/26/2025 7:31 AM CDT [facility] 06/26/2025 7:07 AM CDT Franki Cadena MD LABORATORY Final Result [facility] [address] [place] [address], [phone] * (ABNORMAL) CBC W/DIFF AUTOMATED (06/26/2025 7:07 AM CDT) WBC 15.71(H) 4.00 - 10.80 x10'3/uL 06/26/2025 7:12 AM CDT [facility] RBC 4.01(L) 4.50 - 6.10 x10'6/uL 06/26/2025 7:12 AM CDT [facility] HGB 12.0(L) 13.0 - 18.0 G/DL 06/26/2025 7:12 AM CDT [facility] HCT 37.4 37.0 - 52.0 % 06/26/2025 7:12 AM CDT [facility] MCV 93.3 78.0 - 100.0 FL 06/26/2025 7:12 AM CDT [facility] MCH 29.9 27.0 - 31.0 PG 06/26/2025 7:12 AM CDT [facility] MCHC 32.1(L) 33.0 - 36.0 G/DL 06/26/2025 7:12 AM CDT [facility] RDW 14.7(H) 11.5 - 14.5 % 06/26/2025 7:12 AM CDT [facility] PLT 277 150 - 350 x10'3/uL 06/26/2025 7:12 AM CDT [facility] MPV 9.8 7.4 - 10.4 FL 06/26/2025 7:12 AM CDT [facility] DIFFERENTIAL TYPE AUTOMATED DIFFERENTIAL 06/26/2025 7:12 AM CDT [facility] SEG NEUTROPHILS 61.4 % 7:12 AM CDT [facility] LYMPHOCYTES 26.7 % 06/26/2025 7:12 AM CDT [facility] MONOCYTES 6.9 % 06/26/2025 7:12 AM CDT [facility] EOSINOPHILS 3.2 % 06/26/2025 7:12 AM CDT [facility] BASOPHILS 0.8 % 06/26/2025 7:12 AM CDT [facility] IMMATURE GRANS % 1.0 % 06/26/20 7:12 AM CDT [facility] ABS. NEUTROPHILS 9.66(H) 1.60 - 8.30 x10'3/uL 06/26/2025 7:12 AM CDT [facility] ABS. LYMPHOCYTES 4.19 0.80 - 4.70 x10'3/uL 06/26/2025 7:12 AM CDT [facility] ABS. MONOCYTES 1.09 0.00 - 1.50 x10'3/uL 06/26/2025 7:12 AM CDT [facility] ABS. EOSINOPHILS 0.50(H) 0.00 - 0.40 x10'3/uL 06/26/2025 7:12 AM CDT [facility] ABS. BASOPHILS 0.12 0.00 - 0.20 x10'3/uL 06/26/2025 7:12 AM CDT [facility] ABS. IMMATURE GRANULOCYTES 0.15(H) 0.00 - 0.03 x10'3/uL 06/26/2025 7:12 AM CDT [facility] ABS. NUCLEATED RBC'S 0.00 0.00 - 0.01 x10'3/uL 06/26/2025 7:12 AM CDT [facility] NRBC % 0.0 % 06/26/2025 7:12 AM CDT [facility] 06/26/2025 7:07 AM CDT Franki Cadena MD LABORATORY Final Result [facility] [address] [place] [address], [phone] * Pathology (06/26/2025 12:00 AM CDT) PATHOLOGY [facility] Department of Laboratory Medicine [address] [place] [phone] , extension [phone] Pathology Report Surgical Pathology Report Name: ACOSTA CASTILLO Specimen #: [id number] Age: 10 1960 (Age: 64) Location: [facility] Sex: M Procedure Date: 06/26/2025 Hospital #: [id number] Date Received: 06/26/2025 Date Reported: 06/28/2025 Provider: HYACINTH CADENA MD Source: Liver, needle biopsy Clinical History: Liver mass FINAL DIAGNOSIS: Liver, mass, CT-guided core biopsies: - 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 Diagnosis Comment: Immunohistochemical stains were performed to attempt to assign site of origin. Lesional cells are positive for CK7, CK20, and CDX2 (weak). TTF-1 is negative. These findings are suggestive of an adenocarcinoma of gastrointestinal or pancreaticobiliary origin. Distinction between a lower gastrointestinal or upper gastrointestinal origin cannot be determined given strong diffuse positivity for CK7 and CK20. Clinical correlation is recommended to assign site of origin. Gross Description: Received in formalin, labeled with a patient label and is not further designated, are 4 needle core biopsies of white-nolan soft tissue ranging from 1.5 to 1.8 cm in greatest dimension. Also received are 2 touch prep slides. The specimen is entirely submitted in cassettes 1 and 2. All immunohistochemical and histochemical tests were developed by and performed at [facility], [address] [place] [address]. All tests reported here have not been cleared or approved by the U.S. Food and Drug Administration (FDA). This laboratory is regulated under CLIA as qualified to perform high-complexity testing. These tests are used for clinical purposes. They should not be regarded as investigational or for research. Positive and negative controls show appropriate reactivity. Gross examination (when applicable), interpretation, and sign out were performed at [facility], [address] [place] [address]. Intraoperative Diagnosis: Liver, mass, CT-guided core biopsy touch preparation: Episode 1 Pass 1: Adequate Pass 2: Adequate Performed by Jaguar Ely MD [place] [address]. Electronically Signed Out JAGUAR ELY MD [facility] 06/26/2025 06/26/2025 2:0 7 PM CDT Comment:Liver, needle biopsy Hyacinth Camargo MD PATHOLOGY/CYTOLOGY OR DERABLES Final Result [facility] [address] [place] [address], [phone] * Colonoscopy (12/25/2023 6:41 AM CDT) us Orville Huddleston MD GI PROCEDURE ORDERABLES Final Result from Last 3 Months or Most Recently Relevant to Health Maintenance Insurance MEDICARE [facility] [place] Care Teams Preconstruction Manager Relationship Specialty Start Date End Date Tacho Manjarrez MD [address] [place] [address] PCP - General INTERNAL MEDICINE 12/25/23
== END 2025-06-29 14:19 | disposition home or self-care (01) ==
PROVIDERS: PCP Internal Medicine; Visit Provider Physician Assistant
DX: M47.894 Other spondylosis, thoracic region (principal)
CPT/HCPCS: 72146

== ENCOUNTER 2025-07-03 15:59 | Emergency (ER) | payer MEDICARE, OTHER, SELFPAY ==
[2025-07-03] VITALS (16 sets, daily range): BP systolic 145–180; BP diastolic 75–97; PULSE 75–107; RESP 18–20; TEMP 36.6–36.9; O2SAT 90–97
--- NOTE | ~2025-07-03 | XR_ITS ---
EXAMINATION: XR chest 1V portable 07/03/2025 16:22 INDICATION: Chest pain TECHNIQUE:A single AP portable upright frontal image of the chest was obtained COMPARISON: 06/18/2025 FINDINGS: Heart is not enlarged. No pneumothorax. No pleural effusion. No free air the diaphragm. No focal pulmonary consolidation. Right-sided Mediport catheter with its tip projecting over the cavoatrial junction. Stable probable old or nonununited fracture of the left scapula. Correlate clinically. Left- sided rib fractures. Correlate clinically. IMPRESSION: 1: No acute pulmonary process identified. Reviewed, dictated and finalized at location Q.
--- NOTE | ~2025-07-03 | CT_ITS ---
EXAMINATION: CT abdomen pelvis w con DATE: 07/03/2025 17:09 INDICATION: Upper abdomen pain TECHNIQUE: Computed tomography (CT) of the abdomen and pelvis was performed with 100 cc Omnipaque 350 intravenous contrast. The dose-length product was 704.08 mGy-cm. Automated exposure control and iterative reconstruction technique were employed. COMPARISON: CT dated 06/19/2025 FINDINGS: Multiple hypervascular masses are identified throughout the liver involving all segments, most likely metastatic disease. There is a new wedge- shaped hypovascular lesion of the spleen which may represent a splenic infarct or metastases. There is progression of peritoneal stranding and nodularity consistent with peritoneal carcinomatosis. Gallbladder is contracted. There is free fluid surrounding the liver and spleen. Nonobstructing bilateral nephrolithiasis. Small low-density lesions in the left kidney, most likely benign cysts. The pancreas, adrenal glands are unremarkable. Nonobstructive bowel gas pattern. Colonic diverticulosis without evidence for diverticulitis. No free air or free fluid. Probable gallstones. No free air or free fluid. Nonobstructive bowel pattern. There is atherosclerosis without aneurysm. There is free fluid in the pelvis. Moderate lower thoracic and lumbar spondylosis. IMPRESSION: 1. Hypovascular liver masses without significant change, consistent with metastases. Correlate for history of primary malignancy. 2: Peritoneal carcinomatosis with progression since prior study. 3: Nonobstructing bilateral nephrolithiasis. 4: Cholelithiasis. 5: Wedge-shaped hypovascular lesion of the spleen which may represent splenic infarct or less likely metastases. Reviewed, dictated and finalized at location O. IMPRESSION: 1. Hypovascular liver masses without significant change, consistent with metast ases. Correlate for history of primary malignancy. 2: Peritoneal carcinomatosis with progression since prior study. 3: Nonobstructing bilateral nephrolithiasis. 4: Cholelithiasis. 5: Wedge-shaped hypovascular lesion of the spleen which may represent splenic infarct or less likely metastases.
--- OUTSIDE RECORDS SUMMARY | 2025-07-03 14:45 | XMS_ITS | Encounter Summary ---
Author Organization [facility] Address [facility] [place] [address] Care Team Providers Care Kennel Keeper Name Role Phone Tacho Manjarrez MD Primary Care Provider [phone] Encounter Details Date Type Department Care Team (Late st Contact Info) Description 07/03/2025 2:45 PM CDT Hospital Encounter [facility] [address] [place] [address] Patty Carlson MD [address] [place] [address] Social History Tobacco Use Types Packs/Day Years Used Date Smoking Tobacco: Every Day Cigarettes Smokeless Tobacco: Never Alcohol Use Standard Drinks/Week Comments Never 0 (1 standard drink = 0.6 oz pur e alcohol) Sex and Gender Information Value Date Recorded Sex Assigned at Male 06/26/2025 6:46 AM CDT 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
--- NOTE | 2025-07-03 16:00 | ECG_ITS ---
Test Date: 2025-07-03 16:04:22 Measurements Intervals [place] Rate: 93 P: 82 [place]: 155 QRS: 121 QRSD: 97 T: 69 QT: 349 QTc: 435 Interpretive Statements SINUS RHYTHM WITH MINOR NONSPECIFIC T-WAVE CHANGES BORDERLINE ECG Compared to ECG 06/18/2025 21:21:11 NO DIFFERENCE Electronically Signed On 07-04-2025 12:42:42 CDT by Bhupendra Montesinos M.D.
--- OUTSIDE RECORDS SUMMARY | 2025-07-03 16:00 | XMS_ITS | Clinical Summary ---
Author Organization [facility] Address [address] [place] [address] Care Team Providers Care [employer]isher Name Role Phone Tacho Manjarrez MD Primary Care Provider [phone] Allergies No known active allergies Medications apixaban [...] Encounters Date Type Department Care Team Description 07/03/2025 2:45 PM CDT Hospital Encounter [facility] [address] [place] [address] Hyacinth Camargo MD 06/26/2025 6:57 AM CDT - 06/26/2025 11:59 PM T Hospital Encounter [facility] [address] [place] [address] Franki Cadena MD Discharge Disposition: Home or Self Care (Routine Discharge) 06/26/2025 6:50 AM CDT - 06/26/2025 6:56 AM CDT Hospital Encounter [facility] Interventional Radiology [address] [place] [address] Hyacinth Camargo MD Discharge Disposition: Home or Self Care (Routine Discharge) 06/23/2025 Telephone [facility] Interventional Radiology [address] [place] [address] Papo Betancur PA-C Appointment Request from Last [...] AM CDT Legal 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 Gender Identity Not on file Sexual [...] 11:11 AM CDT CLL (chronic lymphocytic leukemia) (CMS/HCC HHS/HCC) IR PORTACATH INSERT Routine 06/26/2025 1 0:28 AM CDT CLL (chronic lymphocytic leukemia) (CMS/HCC HHS/HCC) CBC W/DIFF AUTOMATED Routine 06/26/2025 7:07 AM CDT Chronic lymphatic leukemia (CMS/HCC HHS/HCC) PROTHROMBIN TIME, VENOUS Routine 06/26/2025 7:07 AM CDT Chronic lymphatic leukemia (CMS/HCC HHS/HCC) PATHOLOGY Routine 06/26/2025 12:00 AM CDT [...] 11:07 AM Narrative 06/26/2025 11:15 AM CDT [facility] [address] [place], [place] [address] CT-guided biopsy of liver mass Indication: Multiple liver lesions. History of CLL. Evaluate liver involvement versus second primary. Following informed consent, including discussion of procedural risks, the patient was place in the supine position on the CT table and [place] protocol was observed to verify correct patient, [...] 18-gauge core specimens were then obtained. A flight technician was present to confirm specimen adequacy. Post biopsy imaging showed no evidence of hematoma or other complication. Sterile dressing was applied. There were no immediate complications. Conscious sedation: Administered and monitored by a qualified interventional radiology nurse under supervision of the interventional radiologist. There was continuous monitoring of vital signs including pulse oximetry, end-tidal CO2, and EKG. Total intraservice or nbld-zl-ydxy sedation time: 59 minutes (total combined time for port placement and liver biopsy). EBL: <10 mL Procedure Note Franki Cadena MD - 06/26/2025 [facility] [address] [place], [place] [address] CT-guided biopsy of liver mass Indication: Multiple [...] 4 18-gauge corespecimens were then obtained. A flight technician was present to confirmspecimen adequacy. Post biopsy imaging showed no evidence of hematoma orother complication. Sterile dressing was applied. There were no immediate complications. Conscious sedation: Administered and monitored by a qualifiedinterventional radiology nurse under supervision of the interventionalradiologist. There was continuous monitoring of vital signs includingpulse oximetry, end-tidal CO2, and EKG. Total intraservice or mgqi-uq-gwjcebszhbwn time: 59 minutes (total combined time for [...] 1:33 PM Narrative 06/26/2025 1:35 PM CDT [place] [address] IR Procedure Note Pre op diagnosis: Multiple liver lesions. History of CLL. Jwsxwe-s-Udzo requested. Post Op Diagnosis: same Procedure: Infusaport placement Grafts/Implants: 8 Fr Bard Low Profile Power Port (CT Injectable) Radiologist: Lluvia Technical Architect: eh Anesthesia: Local - 1% Lidocaine IV conscious [...] Procedure Note Humberto Teixeira MD - 06/26/2025 [place] [address] IR Procedure Note Pre op diagnosis: Multiple liver lesions. History of CLL. Vgrpzg-b-Lufhprzgfslxh. Post Op Diagnosis: same Procedure: Infusaport placement Grafts/Implants: 8 Fr Bard Low Profile Power Port (CT Injectable) Radiologist: Lluvia Technical Architect: he Anesthesia: Local - 1% Lidocaine IV [...] VENOUS (PROTHROMBIN TIME) (06/26/2025 7:07 AM CDT) Pathologist [facility] PROTIME 13.6(H) 9.4 - 12.5 SEC 06/26/2025 7:31 AM CDT [facility] INR 1.2(H) 0.8 - 1.1 06/26/2025 7:31 AM CDT [facility] 06/26/2025 7:07 AM CDT Franki Cadena MD LABORATORY Final Result Performing Organization Address City/State/[facility] Co de Phone Number [facility] [address] [place] [address], [phone] * (ABNORMAL) CBC W/DIFF AUTOMATED (06/26/2025 7:07 AM CDT) Pathologist [facility] WBC 15.71(H) 4.00 - 10.80 x10'3/uL 06/26/2025 7:12 AM CDT [facility] RBC 4.01(L) 4.50 - 6.10 x10'6/uL 06/26/2025 7:12 AM CDT [facility] HGB 12.0(L) 13.0 - 18.0 G/DL 06/26/2025 7:12 AM CDT [facility] HCT 37.4 37.0 - 52.0 % 06/26/2025 7:12 AM CDT [facility] MCV 93.3 78.0 - 100.0 FL 06/26/2025 7:12 AM CDT [facility] MCH 29.9 27.0 - 31.0 PG 06/26/2025 7:12 AM CDT [facility] MCHC 32.1(L) 33.0 - 36.0 G/DL 06/26/2025 7:12 AM CDT [facility] RDW 14.7(H) 11.5 - 14.5 % 06/26/2025 7:12 AM CDT [facility] PLT 277 150 - 350 x10'3/uL 06/26/2025 7:12 AM CDT [facility] MPV 9.8 7.4 - 10.4 FL 06/26/2025 7:12 AM CDT [facility] DIFFERENTIAL TYPE AUTOMATED DIFFERENTIAL 06/26/2025 7:12 AM CDT [facility] SEG NEUTROPHILS 61.4 % 7:12 AM CDT [facility] LYMPHOCYTES 26.7 % 06/26/2025 7:12 AM CDT [facility] MONOCYTES 6.9 % 06/26/2025 7:12 AM CDT [facility] EOSINOPHILS 3.2 % 06/26/2025 7:12 AM CDT [facility] BASOPHILS 0.8 % 06/26/2025 7:12 AM CDT [facility] IMMATURE GRANS % 1.0 % 06/26/20 7:12 AM CDT [facility] ABS. NEUTROPHILS 9.66(H) 1.60 - 8.30 x10'3/uL 06/26/2025 7:12 AM CDT [facility] ABS. LYMPHOCYTES 4.19 0.80 - 4.70 x10'3/uL 06/26/2025 7:12 AM CDT [facility] ABS. MONOCYTES 1.09 0.00 - 1.50 x10'3/uL 06/26/2025 7:12 AM CDT [facility] ABS. EOSINOPHILS 0.50(H) 0.00 - 0.40 x10'3/uL 06/26/2025 7:12 AM CDT [facility] ABS. BASOPHILS 0.12 0.00 - 0.20 x10'3/uL 06/26/2025 7:12 AM CDT [facility] ABS. IMMATURE GRANULOCYTES 0.15(H) 0.00 - 0.03 x10'3/uL 06/26/2025 7:12 AM CDT [facility] ABS. NUCLEATED RBC'S 0.00 0.00 - 0.01 x10'3/uL 06/26/2025 7:12 AM CDT [facility] NRBC % 0.0 % 06/26/2025 7:12 AM CDT [facility] 06/26/2025 7:07 AM CDT Franki Cadena MD LABORATORY Final Result [facility] [address] [place] [address], [id number] * Pathology (06/26/2025 12:00 AM CDT) PATHOLOGY [facility] Department of Laboratory Medicine [address] [place] [address] , extension [phone] Pathology Report Addendum Surgical Pathology Report Name: ACOSTA CASTILLO Specimen #: [id number] Age: 10 1960 (Age: 64) Location: [facility] Sex: M Procedure Date: 06/26/2025 Hospital #: [id number] Date Received: 06/26/2025 Date Reported: / Provider: HYACINTH CADENA MD Source: Liver, needle [...] tests were developed by and performed at [facility], [address] [place] [address]. All tests reported here have not been [...] interpretation, and sign out were performed at [facility], [address] [place] [address]. Intraoperative Diagnosis: Liver, mass, CT-guided core biopsy touch preparation: Episode 1 Pass 1: Adequate Pass 2: Adequate Performed by Jaguar Ely MD [place] [address]. Electronically Signed Out JAGUAR ELY MD Addenda/Procedures Addendum Date Ordered: 07/03/2025 Status: Signed Out Date Complete: 07/03/2025 By: Tito Adamson Date Reported: 07/03/2025 Addendum Diagnosis Archival slides are reviewed on 07/03/25 and an appropriate tissue block is selected for xT, xR, and additional testing at [facility] as requested by Dr. Hyacinth Camargo. Addendum Comment {Not Entered} CHARITO NARANJO MD [facility] 06/26/2025 06/26/2025 2:0 7 PM CDT Comment:Liver, needle biopsy Hyacinth Camargo MD PATHOLOGY/CYTOLOGY OR DERABLES Final Result [facility] [address] [place] [address], [phone] * Colonoscopy (12/25/2023 6:41 AM CDT) Orville Huddleston MD GI PROCEDURE ORDERABLES Final Result from Last 3 Months or Most Recently Relevant to Health Maintenance Insurance MEDICARE [facility] Care Teams [employer] Relationship Specialty Start Date End Date Tacho Manjarrez MD [address] [place] [address] PCP - General INTERNAL MEDICINE 12/25/23
--- NOTE | 2025-07-03 16:14 | PC.NURSE ---
glucose 270
[2025-07-03 16:15] LABS: Hematocrit 36.3 % (37.0-46.0); Hemoglobin 11.7 g/dL (12.4-15.3); Immature Granulocyte Percent A 0.8 % (0.0-0.0); Lymphocytes Absolute Auto 2.92 K/mm3 (1.10-4.50); Mean Corpuscular HGB Conc 32.2 g/dL (32-36); Mean Corpuscular Hemoglobin 29.3 pg (27.0-31.0); Mean Corpuscular Volume 90.8 fL (78.0-102.0); Nucleated Red Blood Cells Absolute Auto 0.00 K/mm3 (0.00-0.00); Nucleated Red Blood Cells Perc 0.0 % (0-0.0); Platelet Count Result 212 K/mm3 (150-420); Red Blood Count 4.00 M/mm3 (4.70-6.10); White Blood Count 13.6 K/mm3 (4.8-10.8)
[2025-07-03 16:27] LABS: INR 1.0; Prothrombin Time 11.3 Seconds (9.50-12.1)
[2025-07-03 16:31] LABS: Alanine Aminotransferase 102 U/L (6-50); Albumin Level 3.9 g/dL (3.5-5.1); Alkaline Phosphatase 449 U/L (38-126); Anion Gap 8 mmol/L (4-12); Aspartate Amino Transferase 88 U/L (17-59); Bilirubin,Total 1.2 mg/dL (0.2-1.3); Blood Urea Nitrogen 15 mg/dL (9-20); Calcium 9.1 mg/dL (8.4-10.2); Carbon Dioxide 30 mmol/L (22-30); Chloride 99 mmol/L (98-107); Estimated CRCL calculation 74 ml/min; Estimated Glomerular Filt Rate > 60; Glucose 107 mg/dL (65-110); Osmolality Calculated 284 mOsm/kg (285-295); Potassium 3.9 mmol/L (3.4-5.0); Sodium 137 mmol/L (137-145); Total Protein 7.5 g/dL (6.3-8.2)
[2025-07-03 16:40] LABS: NT Pro B Type Natriuretic Pept 201 pg/mL (19.9-100)
[2025-07-03] MEDS: SODIUM CHLORIDE 0.9% IV 1,000 ML 150 ML IV CONT (17:03)
[2025-07-03] MEDS: MORPHINE SULFATE (*CRX) 4 MG/ML INJ IV PUSH (17:04)
[2025-07-03] MEDS: ONDANSETRON INJ 4 MG/2 ML VIAL IV PUSH ×2 (17:04→20:35)
--- NOTE | 2025-07-03 17:54 | PC.NURSE ---
[facility] contacted to page pt's oncologist Dr. Carlson.
[2025-07-03] MEDS: HYDROmorphone HCL INJ (*CRX) 2 MG/ML VIAL 1 MG IV PUSH ×2 (18:22→20:31)
[2025-07-03] MEDS: SODIUM CHLORIDE 0.9% IV 1,000 ML 75 ML IV CONT (18:44)
--- NOTE | 2025-07-03 19:14 | ED.GENADULT ---
HPI - General Adult General Chief complaint: Chest Pain Stated complaint: chest pain Time Seen by Provider: 07/03/25 16:01 Source: patient Mode of arrival: EMS Limitations: no limitations History of Present Illness HPI narrative: 64-year-old with a history of PE, metastatic liver cancer presents to the ER with a complains of upper abdominal pain for last several days. Patient was seen here few days ago for the same. He is presently taking oxycodone and morphine for pain control which is not really helpful. Denies any nausea or vomiting. His oncologist is at [facility]. denies any fever, cough of her shortness of breath. Onset (ago): day(s) (4) Location: abdomen Radiation: non-radiation Severity: moderate Quality: aching Pain Consistency: constant Relieving factors: none Exacerbating factors: none Associated symptoms: denies other symptoms Related Data Home Medications ?Medication ?Instructions ?Recorded ?Confirmed ?Last Taken ?Type morphine 15 mg tablet,extended mg PO 07/03/25 Unknown History release oxycodone 10 mg tablet mg 07/03/25 Unknown History Allergies Allergy/AdvReac Type Severity Reaction Status Date / Time No Known Allergies Allergy Verified 07/03/25 16:01 Review of Systems Review of Systems: All systems reviewed & are unremarkable except as noted in HPI and below Constitutional: Constitutional: Reports no additional constitutional complaints Eyes: Eyes: Reports no additional eye complaints ENT: Reports system reviewed and no additional complaints, except as documented Cardiovascular: Cardiovascular: Reports no additional cardiovascular complaints Respiratory: Respiratory: Reports no additional respiratory complaints Gastrointestinal: Gastrointestinal: Reports as per HPI Musculoskeletal: Musculoskeletal: Reports no additional musculoskeletal complaints [facility] Past Medical History Medical History Leukemia Cataract associated with other syndromes Medical history non-contributory Surgical History Surgical History Hidradenitis suppurativa 01/04/24 Excision left groin hidradenitis History of back surgery Family History Family History Mother Diabetes mellitus Rectal cancer Father History of kidney cancer Social History Social History Smoking packs per day: 0.75 Smoking cigarettes per day: 15.0 Years smoked: 47 Smoking pack-years: 35.25 Smoking status: Current every day smoker Tobacco type: cigarettes Alcohol intake: never Do You Feel Safe in your Home?: Yes Lack of Transportation: No Lack of Food: Never True Current Housing: I Have Housing Concerned About Future Housing: No Difficulty Paying Gas/Electric Bills: No Difficulty Paying for Meds: No Currently Unemployed: YES Education: High School Diploma/GED Difficulty w/ Childcare or Family Care: No Living arrangements: with family Additional living arrangements comments: -LALITHA Occupation/Education: occupation Additional occupation/education comments: [employer] Gender identity (if verbalized by the patient): Male Spiritual care concerns: No Exam Narrative: GENERAL: Well-appearing, well-nourished, and in no acute distress. HEAD: Normocephalic, atraumatic. EYES: PERRLA and EOMI. ENT: Nares clear, no rhinorrhea or epistaxis. Mucous membranes moist. NECK: Supple. CHEST: Clear to auscultation. No respiratory distress. HEART: Regular rate and rhythm. No murmur heard. Normal peripheral pulses. ABDOMEN: Soft,tender in the upper abd, nondistended, normal active bowel sounds. EXTREMITIES: Normal range of motion. No edema. SKIN: Warm, dry, no rash. NEURO: No focal deficits. Alert and oriented x3. PSYCH: Normal mood and affect. Course Course Emergency Course: IV morphine and Dilaudid were given for pain control did obtain the lab and CT of the abdomen. Discussed the findings with the patient and his . Also discussed with his oncologist Dr. Owens will accept the patient in transfer I discussed with the hospitalist Dr. Maurer will acceptthe pt. Vital Signs Vital signs: Vital Signs Temperature 36.9 C 07/03/25 15:59 Pulse Rate 97 07/03/25 15:59 Respiratory Rate 20 07/03/25 15:59 Blood Pressure 180/97 H 07/03/25 15:59 Pulse Oximetry 97 07/03/25 15:59 Oxygen Delivery Room Air 07/03/25 15:59 Temperature 36.9 C 07/03/25 15:59 Pulse Rate 102 H 07/03/25 17:45 Respiratory Rate 20 07/03/25 15:59 Blood Pressure 174/86 H 07/03/25 17:45 Pulse Oximetry 95 07/03/25 17:45 Oxygen Delivery Room Air 07/03/25 15:59 Medical Decision Making MDM Narrative Medical decision making narrative: 64-year-old with a history of metastatic liver cancer presents with upper abdominal pain concerned about the he is on anticoagulant at this time. He denies having any shortness of breath on exam his tender in the upper abdomen will do abdominal workup including CT. Meanwhile control his pain with IV morphine and hydromorphone. Differential Diagnosis Differential Diagnosis: Gastritis, cholecystitis, metastatic liver cancer Medical Records Medical records reviewed: Yes I reviewed the external patient's medical records. Vital Signs Vital Signs: Vital Signs Temperature 36.9 C 07/03/25 15:59 Pulse Rate 97 07/03/25 15:59 Respiratory Rate 20 07/03/25 15:59 Blood Pressure 180/97 H 07/03/25 15:59 Pulse Oximetry 97 07/03/25 15:59 Oxygen Delivery Room Air 07/03/25 15:59 Temperature 36.9 C 07/03/25 15:59 Pulse Rate 102 H 07/03/25 17:45 Respiratory Rate 07/03/25 15:59 Blood Pressure 174/86 H 07/03/25 17:45 Pulse Oximetry 95 07/03/25 17:45 Oxygen Delivery Room Air 07/03/25 15:59 Lab Data Lab results reviewed: Yes I reviewed the patient's lab results. 07/03/25 16:11 07/03/25 16:11 Labs: Lab Results 07/03/25 Range/Units 16:11 WBC 13.6 H (4.8-10.8) K/mm3 RBC 4.00 L (4.70-6.10) M/mm3 Hgb 11.7 L (12.4-15.3) g/dL Hct 36.3 L (37.0-46.0) % MCV 90.8 (78.0-102.0) fL MCH 29.3 (27.0-31.0) pg MCHC 32.2 (32-36) g/dL RDW 14.6 H (11.6-14.4) % Plt Count 212 (150-420) K/mm3 MPV 9.8 (8.7-11.0) fl Immature Gran % (Auto) 0.8 H (0.0-0.0) % Neut % (Auto) 69.3 (50.0-70.0) % Lymph % (Auto) 21.4 (18.0-42.0) % [place] % (Auto) 6.1 (2.0-11.0) % Eos % (Auto) 1.8 (1.0-6.0) % Baso % (Auto) 0.6 (0.0-1.0) % Lymph # (Auto) 2.92 (1.10-4.50) K/mm3 [place] # (Auto) 0.83 (0.10-0.90) K/mm3 Eos # (Auto) 0.25 (0.02-0.50) K/mm3 Baso # (Auto) 0.08 (0.00-0.10) K/mm3 Abs Immat Gran (auto) 0.11 H (0.00-0.00) K/mm3 Absolute Neuts (auto) 9.43 H (1.70-7.20) K/mm3 Absolute Nucleated RBC 0.00 (0.00-0.00) K/mm3 Nucleated RBC % 0.0 (0-0.0) % PT 11.3 (9.50-12.1) Seconds INR 1.0 Sodium 137 (137-145) mmol/L Potassium 3.9 (3.4-5.0) mmol/L Chloride 99 (98-107) mmol/L Carbon Dioxide 30 (22-30) mmol/L Anion Gap 8 (4-12) mmol/L BUN 15 D (9-20) mg/dL Creatinine 0.95 (0.7-1.3) mg/dL Estim Creat Clear Calc 74 ml/min Estimated GFR > 60 (59 - ) Glucose 107 (65-110) mg/dL Calculated Osmolality 284 L (285-295) mOsm/kg Calcium 9.1 (8.4-10.2) mg/dL Total Bilirubin 1.2 (0.2-1.3) mg/dL AST 88 H (17-59) U/L ALT 102 H (6-50) U/L Alkaline Phosphatase 449 H (38-126) U/L NT-Pro-B Natriuret Pep 201 H (19.9-100) pg/mL Total Protein 7.5 (6.3-8.2) g/dL Albumin 3.9 (3.5-5.1) g/dL Imaging Data Radiologist's impression: ITS Impressions Chest X-Ray 07/03/25 16:28 IMPRESSION: 1: No acute pulmonary process identified. Abdomen/Pelvis CT 07/03/25 17:11 IMPRESSION: 1. Hypovascular liver masses without significant change, consistent with metastases. Correlate for history of primary malignancy. 2: Peritoneal carcinomatosis with progression since prior study. 3: Nonobstructing bilateral nephrolithiasis. 4: Cholelithiasis. 5: Wedge-shaped hypovascular lesion of the spleen which may represent splenic infarct or less likely metastases. ECG Data EKG #1: ECG completion date: 07/03/25 ECG completion time: 16:04 EKG Interpretation: normal rate (93), no ectopy, no ST changes, normal QT and no acute changes Discharge Plan Discharge Clinical Impression: Cancer, metastatic to liver Abdominal pain Qualifiers: Abdominal location: epigastric Qualified Code(s): R10.13 - Epigastric pain Patient Disposition: Acute Care Hospital Condition: Stable Patient Language: Slovenian Prescriptions: No Action apixaban 5 mg tablet See Rx Instructions .ROUTE .COMPLEX Qty: 42 0RF Rx Instructions: 10 mg PO bid x7 days, then 5 mg PO bid morphine 15 mg tablet extended release PO oxycodone 10 mg tablet Follow-up/Referrals: Tacho Manjarrez MD [Primary Care Provider, Internal Medicine] Time of Disposition: 19:21
--- NOTE | 2025-07-03 20:11 | PC.NURSE ---
Report given to Tessa, bed assignment received.
== END 2025-07-03 21:20 | disposition short-term general hospital (02) ==
PROVIDERS: Emergency Provider Family Medicine; PCP Internal Medicine
DX: C78.7 Secondary malignant neoplasm of liver and intrahepatic bile duct (principal); R10.13 Epigastric pain; F17.210 Nicotine dependence, cigarettes, uncomplicated; Z79.891 Long term (current) use of opiate analgesic
CPT/HCPCS: 36415; 71045; 74177; 80053; 83880; 85025; 85610; 93005; 96361; 96374; 96375; 96376; 99285; J1171; J2270; J2405; J7030; Q9967

== ENCOUNTER 2025-07-12 11:06 | Outpatient (CLI) | payer MEDICARE, OTHER, SELFPAY ==
[2025-07-12 11:22] LABS: Hematocrit 32.6 % (37.0-46.0); Hemoglobin 10.4 g/dL (12.4-15.3); Immature Granulocyte Percent A 2.1 % (0.0-0.0); Lymphocytes Absolute Auto 3.96 K/mm3 (1.10-4.50); Mean Corpuscular HGB Conc 31.9 g/dL (32-36); Mean Corpuscular Hemoglobin 28.2 pg (27.0-31.0); Mean Corpuscular Volume 88.3 fL (78.0-102.0); Nucleated Red Blood Cells Absolute Auto 0.00 K/mm3 (0.00-0.00); Nucleated Red Blood Cells Perc 0.0 % (0-0.0); Platelet Count Result 273 K/mm3 (150-420); Red Blood Count 3.69 M/mm3 (4.70-6.10); White Blood Count 17.7 K/mm3 (4.8-10.8)
[2025-07-12 11:59] LABS: Alanine Aminotransferase 69 U/L (6-50); Albumin Level 3.3 g/dL (3.5-5.1); Alkaline Phosphatase 403 U/L (38-126); Anion Gap 7 mmol/L (4-12); Aspartate Amino Transferase 54 U/L (17-59); Bilirubin,Total 1.1 mg/dL (0.2-1.3); Blood Urea Nitrogen 18 mg/dL (9-20); Calcium 9.3 mg/dL (8.4-10.2); Carbon Dioxide 30 mmol/L (22-30); Chloride 97 mmol/L (98-107); Estimated Glomerular Filt Rate > 60; Glucose 114 mg/dL (65-110); Osmolality Calculated 280 mOsm/kg (285-295); Potassium 4.6 mmol/L (3.4-5.0); Sodium 134 mmol/L (137-145); Total Protein 6.4 g/dL (6.3-8.2)
== END 2025-07-12 11:07 | disposition home or self-care (01) ==
PROVIDERS: PCP Internal Medicine; Visit Provider Internal Medicine Hematology
DX: C91.10 Chronic lymphocytic leukemia of B-cell type not having achieved remission (principal)
CPT/HCPCS: 36415; 80053; 82248; 85025

== ENCOUNTER 2025-07-21 15:05 | Inpatient (IN) | payer MEDICARE, OTHER, SELFPAY ==
[2025-07-21] VITALS (16 sets, daily range): BP systolic 115–153; BP diastolic 60–80; PULSE 68–93; RESP 13–21; TEMP 36.7–37; O2SAT 80–94; BMI 26.2
--- NOTE | ~2025-07-21 | CT_ITS ---
Exam: CT abdomen and pelvis without contrast Clinical History: [Right flank pain for one week which is worsening.. ] Comparison: [ CT abdomen pelvis 07/03/2025] Technique: Multiple axial CT images of the abdomen and pelvis were obtained without IV contrast. Sagittal and coronal reformatted images were obtained. FINDINGS: Lung bases: [ There are a few small opacities in the lower lungs. There are a few less than 6 mm pulmonary nodules in the lower lobes. A chest CT is recommended. Liver: [ No intrahepatic biliary duct dilatation.] Redemonstration of the low density masses scattered throughout the liver consistent with liver metastases. Gallbladder: Gallbladder is contracted. Gallbladder wall thickening. Small amount of hyperdense material within the gallbladder which may represent sludge or tiny gallstones. The findings are similar to the prior recent CT studies. Common bile duct: [ Normal caliber.] Spleen: Stable low-density region within the spleen. Pancreas: [ No mass. No pancreatic fluid collection.] Adrenals: [ No masses.] Kidneys: [ No masses. No hydronephrosis.][ Stable left renal stone.] There are a few too small to characterize low-attenuation lesions in the kidneys. Lymph nodes: [ No adenopathy in the abdomen or pelvis.] Stomach, small bowel and colon: [ No bowel wall thickening or obstruction.] Peritoneum cavity: Redemonstration of the peritoneal carcinomatosis throughout the abdomen and pelvis. Interval development of a small to moderate amount of nonspecific fluid in the abdomen and pelvis. Bladder: Bladder is distended. Prostate gland is enlarged and partially calcified. Osseous structures: [ No acute fracture or destructive lesion.] [ Multilevel degenerative change in the visualized spine.] Abdominal aorta: [ No aneurysm.] Additional findings: Small right fat-containing or hernia which also contains a small amount of fluid. IMPRESSION: 1. Interval development of a small to moderate amount of nonspecific fluid in the abdomen or pelvis. 2. Redemonstration of the peritoneal carcinomatosis similar to the study from 07/03/2025. 3. Liver metastases similar to the study from 07/03/2025. 4. Indeterminate wedge-shaped hypovascular region in the spleen similar to the study from 07/03/2025. 5. Cholelithiasis. Findings as above. Reviewed, dictated and finalized at location Q. IMPRESSION: 1. Interval development of a small to moderate amount of nonspecific fluid in t he abdomen or pelvis. 2. Redemonstration of the peritoneal carcinomatosis similar to the study from . 3. Liver metastases similar to the study from 07/03/2025. 4. Indeterminate wedge-shaped hypovascular region in the spleen similar to the study from 07/03/2025. 5. Cholelithiasis. Findings as above.
--- NOTE | ~2025-07-21 | XR_ITS ---
EXAMINATION: XR chest 1V portable DATE: 07/21/2025 16:07 INDICATION: Shortness of breath. TECHNIQUE: A single AP portable upright frontal image of the chest was obtained COMPARISON: Chest x-ray 07/01/2025 FINDINGS: Heart is mildly enlarged. There is a stable right-sided Mediport catheter. No pneumothorax. No pleural effusion. No free air under the diaphragm. Small opacities in the lower lungs. IMPRESSION: 1. Small opacities in the mid and lower lungs which represents atelectasis/scarring or infiltrates. If symptoms persist or worsen, consider a short-term follow-up study or additional imaging for further assessment. Reviewed, dictated and finalized at location Q. IMPRESSION: 1. Small opacities in the mid and lower lungs which represents atelectasis/scar ring or infiltrates. If symptoms persist or worsen, consider a short-term follow-up study or additio nal imaging for further assessment.
--- NOTE | 2025-07-21 15:34 | ECG_ITS ---
Test Date: 2025-07-21 16:08:06 Measurements Intervals [place] Rate: 90 P: 87 [place]: 157 QRS: 79 QRSD: 92 T: 44 QT: 363 QTc: 445 Interpretive Statements SINUS RHYTHM MINIMAL Q WAVES- INFERIOR LEADS BASELINE ARTIFACT- II, III, AVR, AVL, AVF BORDERLINE ECG Compared to ECG 07/03/2025 16:04:22 NO SIGNIFICANT CHANGE Electronically Signed On 07-21-2025 18:38:24 CDT by Christiano Black D.O.
[2025-07-21 15:48] LABS: Hematocrit 22.8 % (37.0-46.0); Mean Corpuscular HGB Conc 30.3 g/dL (32-36); Mean Corpuscular Hemoglobin 27.1 pg (27.0-31.0); Mean Corpuscular Volume 89.4 fL (78.0-102.0); Platelet Count Result 222 K/mm3 (150-420); Red Blood Count 2.55 M/mm3 (4.70-6.10); White Blood Count 20.6 K/mm3 (4.8-10.8)
[2025-07-21 15:55] LABS: Hemoglobin 6.9 g/dL (12.4-15.3)
[2025-07-21 15:58] LABS: Alanine Aminotransferase 92 U/L (6-50); Albumin Level 3.0 g/dL (3.5-5.1); Alkaline Phosphatase 308 U/L (38-126); Anion Gap 5 mmol/L (4-12); Aspartate Amino Transferase 91 U/L (17-59); Bilirubin,Total 0.9 mg/dL (0.2-1.3); Blood Urea Nitrogen 49 mg/dL (9-20); Calcium 9.0 mg/dL (8.4-10.2); Carbon Dioxide 30 mmol/L (22-30); Chloride 100 mmol/L (98-107); Estimated CRCL calculation 41 ml/min; Estimated Glomerular Filt Rate 39; Glucose 120 mg/dL (65-110); Osmolality Calculated 294 mOsm/kg (285-295); Potassium 5.0 mmol/L (3.4-5.0); Sodium 135 mmol/L (137-145); Total Protein 5.8 g/dL (6.3-8.2)
[2025-07-21 16:03] LABS: Band Neutrophils Percent 0 % (0-6); Eosinophils Absolute Manual 0.20 K/mm3 (0.02-0.50); Eosinophils Percent Manual 1 % (1-6); Lymphocytes Absolute Manual 3.50 K/mm3 (1.1-4.5); Lymphocytes Percent Manual 17 % (18-44); Monocytes Absolute Manual 1.03 K/mm3 (0.1-0.90); Monocytes Percent Manual 5 % (3-9); Neutrophils Absolute Manual 15.65 K/mm3 (1.3-6.7); Neutrophils Percent Manual 76 % (46-73); Total Cells Counted 100
[2025-07-21 16:04] LABS: Metamyelocytes Percent 1 %; Schistocytes None Seen
[2025-07-21 16:07] LABS: NT Pro B Type Natriuretic Pept 1300 pg/mL (19.9-100)
[2025-07-21] MEDS: SODIUM CHLORIDE 0.9% IV 250 ML 30 ML IV CONT (17:53)
[2025-07-21] MEDS: MORPHINE SULFATE (*CRX) 4 MG/ML INJ IV PUSH ×3 (17:54→22:12)
--- NOTE | 2025-07-21 18:16 | ED_ITS ---
HPI - General Adult General Chief complaint: Shortness of Breath/Dyspnea Stated complaint: low O2 sats Time Seen by Provider: 07/21/25 15:19 Source: patient Mode of arrival: EMS Limitations: no limitations History of Present Illness HPI narrative: 65-year-old with a history of hypertension, BPH, chronic lymphocytic leukemia not having remission, intrahepatic biliary ductal carcinoma presents to the ER with a complains of increased abdominal pain, chest pain and shortness of breath for past 1 day. Patient states he has been getting morphine which is not adequate enough. He denies any fever or chills. No history of nausea, vomiting. Patient is presently living in a snf. He is a full code. Related Data Home Medications ?Medication ?Instructions ?Recorded ?Confirmed ?Last Taken ?Type morphine 15 mg tablet,extended mg PO 07/03/25 Unknown History release oxycodone 10 mg tablet mg 07/03/25 Unknown History Allergies Allergy/AdvReac Type Severity Reaction Status Date / Time No Known Allergies Allergy Verified 07/21/25 18:35 Review of Systems 2 Review of Systems: All systems reviewed & are unremarkable except as noted in HPI and below Constitutional: Constitutional: Reports no additional constitutional complaints Eyes: Eyes: Reports no additional eye complaints ENT: Reports system reviewed and no additional complaints, except as documented Cardiovascular: Cardiovascular: Reports no additional cardiovascular complaints Respiratory: Respiratory: Reports as per HPI Gastrointestinal: Gastrointestinal: Reports as per HPI Musculoskeletal: Musculoskeletal: Reports no additional musculoskeletal complaints [facility]LY [facility] Past Medical History Medical History Leukemia Cataract associated with other syndromes Medical history non-contributory Surgical History Surgical History Hidradenitis suppurativa 01/04/24 Excision left groin hidradenitis History of back surgery Family History Family History Mother Diabetes mellitus Rectal cancer Father History of kidney cancer Social History Social History Smoking packs per day: 0.75 Smoking cigarettes per day: 15.0 Years smoked: 47 Smoking pack-years: 35.25 Smoking status: Current every day smoker Tobacco type: cigarettes Alcohol intake: never Do You Feel Safe in your Home?: Yes Lack of Transportation: No Lack of Food: Never True Current Housing: I Have Housing Concerned About Future Housing: No Difficulty Paying Gas/Electric Bills: No Difficulty Paying for Meds: No Currently Unemployed: YES Education: High School Diploma/GED Difficulty w/ Childcare or Family Care: No Living arrangements: with family Additional living arrangements comments: -LALITHA Occupation/Education: occupation 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 HEAD: Normocephalic, atraumatic. EYES: PERRLA and EOMI. ENT: Nares clear, no rhinorrhea or epistaxis. Mucous membranes moist. NECK: Supple. CHEST: Clear to auscultation. No respiratory distress.has aport on the right side of the chest HEART: Regular rate and rhythm. No murmur heard. Normal peripheral pulses. ABDOMEN: Soft, diffuse tendeness r, nondistended, normal active bowel sounds. EXTREMITIES: Normal range of motion. No edema. SKIN: Warm, dry, no rash. NEURO: No focal deficits. Alert and oriented x3. PSYCH: Normal mood and affect. Course Course Emergency Course: His HB is 6.9 he is agreeable with blood transfusion , discussed with his Oncology recommended admission for pain control and Hospice consult . Vital Signs Vital signs: Vital Signs Temperature 36.7 C 07/21/25 15:05 Pulse Rate 90 07/21/25 15:05 Respiratory Rate 16 07/21/25 15:05 Blood Pressure 136/74 07/21/25 15:05 Pulse Oximetry 80 L 07/21/25 15:05 Oxygen Delivery Room Air 07/21/25 15:05 Temperature 37.0 C 07/21/25 17:56 Pulse Rate 87 07/21/25 18:17 Respiratory Rate 20 07/21/25 18:17 Blood Pressure 128/74 07/21/25 18:17 Pulse Oximetry 93 07/21/25 18:17 Oxygen Delivery Nasal Cannula 07/21/25 18:17 Oxygen Flow Rate 4 07/21/25 18:17 Medical Decision Making Differential Diagnosis Differential Diagnosis: SBO , intractable pain for underlying ca. Medical Records Medical records reviewed: Yes I reviewed the external patient's medical records. Vital Signs Vital Signs: Vital Signs Temperature 36.7 C 07/21/25 15:05 Pulse Rate 90 07/21/25 15:05 Respiratory Rate 16 07/21/25 15:05 Blood Pressure 136/74 07/21/25 15:05 Pulse Oximetry 80 L 07/21/25 15:05 Oxygen Delivery Room Air 07/21/25 15:05 Temperature 37.0 C 07/21/25 17:56 Pulse Rate 87 07/21/25 18:17 Respiratory Rate 20 07/21/25 18:17 Blood Pressure 128/74 07/21/25 18:17 Pulse Oximetry 93 07/21/25 18:17 Oxygen Delivery Nasal Cannula 07/21/25 18:17 Oxygen Flow Rate 4 07/21/25 18:17 Lab Data Lab results reviewed: Yes I reviewed the patient's lab results. 07/21/25 15:41 07/21/25 15:41 Labs: Lab Results 07/21/25 07/21/25 Range/Units 15:41 16:32 WBC 20.6 H (4.8-10.8) K/mm3 RBC 2.55 L (4.70-6.10) M/mm3 Hgb 6.9 L* (12.4-15.3) g/dL Hct 22.8 L (37.0-46.0) % MCV 89.4 (78.0-102.0) fL MCH 27.1 (27.0-31.0) pg MCHC 30.3 L (32-36) g/dL RDW 15.9 H (11.6-14.4) % Plt Count 222 (150-420) K/mm3 MPV 10.4 (8.7-11.0) fl Immature Gran % (Auto) Not Reportable Neut % (Auto) Not Reportable Lymph % (Auto) Not Reportable Esmeralda % (Auto) Not Reportable Eos % (Auto) Not Reportable Baso % (Auto) Not Reportable Lymph # (Auto) Not Reportable Esmeralda # (Auto) Not Reportable Eos # (Auto) Not Reportable Baso # (Auto) Not Reportable Abs Immat Gran (auto) Not Reportable Absolute Neuts (auto) Not Reportable Absolute Nucleated RBC Not Reportable Total Counted 100 Neutrophils % (Manual) 76 H (46-73) % Band Neutrophils % 0 (0-6) % Lymphocytes % (Manual) 17 L (18-44) % Monocytes % (Manual) 5 (3-9) % Eosinophils % (Manual) 1 (1-6) % Metamyelocytes % 1 % Nucleated RBC % Not Reportable Abs Neuts (Manual) 15.65 H (1.3-6.7) K/mm3 Abs Lymphs (Manual) 3.50 (1.1-4.5) K/mm3 Abs Monocytes (Manual) 1.03 H (0.1-0.90) K/mm3 Absolute Eos (Manual) 0.20 (0.02-0.50) K/mm3 Platelet Estimate Adequate (Adequate) Schistocytes None seen Sodium 135 L (137-145) mmol/L Potassium 5.0 (3.4-5.0) mmol/L Chloride 100 (98-107) mmol/L Carbon Dioxide 30 (22-30) mmol/L Anion Gap 5 (4-12) mmol/L BUN 49 H D (9-20) mg/dL Creatinine 1.76 H (0.7-1.3) mg/dL Estim Creat Clear Calc 41 ml/min Estimated GFR 39 L (59 - ) Glucose 120 H (65-110) mg/dL Calculated Osmolality 294 (285-295) mOsm/kg Lactic Acid 1.6 (0.4-2.0) mmol/L Calcium 9.0 (8.4-10.2) mg/dL Total Bilirubin 0.9 (0.2-1.3) mg/dL AST 91 H (17-59) U/L ALT 92 H (6-50) U/L Alkaline Phosphatase 308 H (38-126) U/L NT-Pro-B Natriuret Pep 1300 H (19.9-100) pg/mL Total Protein 5.8 L (6.3-8.2) g/dL Albumin 3.0 L (3.5-5.1) g/dL Blood Type O Positive Antibody Screen Negative Crossmatch See Detail Imaging Data Radiologist's impression: ITS Impressions Chest X-Ray 07/21/25 16:08 IMPRESSION: 1. Small opacities in the mid and lower lungs which represents atelectasis/scarring or infiltrates. If symptoms persist or worsen, consider a short-term follow-up study or additional imaging for further assessment. Abdomen/Pelvis CT 07/21/25 16:12 IMPRESSION: 1. Interval development of a small to moderate amount of nonspecific fluid in the abdomen or pelvis. 2. Redemonstration of the peritoneal carcinomatosis similar to the study from 07/03/2025. 3. Liver metastases similar to the study from 07/03/2025. 4. Indeterminate wedge-shaped hypovascular region in the spleen similar to the study from 07/03/2025. 5. Cholelithiasis. Findings as above. ECG Data EKG #1: ECG completion date: 07/21/25 ECG completion time: 16:08 EKG Interpretation: normal rate (90), no ectopy, no ST changes, normal QRS and normal QT Discharge Plan Discharge Clinical Impression: Intractable abdominal pain Anemia Qualifiers: Anemia type: iron deficiency Iron deficiency anemia type: unspecified iron deficiency Qualified Code(s): D50.9 - Iron deficiency anemia, unspecified Patient Disposition: Still a Patient Condition: Stable Patient Language: [place] Prescriptions: No Action apixaban 5 mg tablet See Rx Instructions .ROUTE .COMPLEX Qty: 42 0RF Rx Instructions: 10 mg PO bid x7 days, then 5 mg PO bid morphine 15 mg tablet extended release PO oxycodone 10 mg tablet Follow-up/Referrals: Tacho Manjarrez MD [Primary Care Provider, Internal Medicine] Time of Disposition: 18:33
[2025-07-21] MEDS: SODIUM CHLORIDE 0.9% IV 1,000 ML 75 ML IV CONT (19:39)
[2025-07-21] MEDS: ONDANSETRON INJ 4 MG/2 ML VIAL IV PUSH (19:39)
--- NOTE | 2025-07-21 20:30 | PC.NURSE ---
spoke with sunny mcintosh on the phone, she is agreeable to hospice consult with corina. she is bringing up pts dnr and healthcare poa paperwork, pt resting in bed with fluids running, fresh water and urinal placed on bedside table
--- NOTE | 2025-07-21 20:36 | ADMGEN ---
This patient, Acosta Osorio, was admitted to 2nd Floor Room 205-1. Patient/family oriented to hospital policies and general routines including ID bracelet, bed and alarms, visiting hours, pain management, procedures, bathroom and other care routines, personal items, smoking policy, room service/diet, and visiting hours. Information on how to activate the Rapid Response Team has been discussed. Patient/Family are encouraged to report perceived risks to care and to ask questions if they do not understand what they are told or what they should do.
--- NOTE | 2025-07-21 20:59 | PC.NURSE ---
DNR and POA HC paperwork received from [facility]. N.O. received to change patient to DNR. Message left for Deanne Joseph RN @ [facility] regarding hospice referral.
--- NOTE | 2025-07-21 22:43 | PC.NURSE ---
Deanne Joseph RN from [facility] returned call for information on patient and will follow up in the am. Face Sheet faxed to hospice as requested.
[2025-07-22] VITALS (7 sets, daily range): BP systolic 123–151; BP diastolic 69–83; PULSE 84–95; RESP 16–18; TEMP 37.1–37.3; O2SAT 92–95
--- NOTE | 2025-07-22 | CONSULT_PTH ---
PATIENT: Acosta Osorio LOC: [facility] U#:[id number] AGE/SX: 65/M ROOM: 205S RE07/22/[address]: Vinicio Lewis MD : 1960 BED: 1 DIS: 07/22/2025 SPEC #: [id number] RECD: 07/22/25 11:37 STATUS: [facility] REQ #: [id number] KERRY: 07/22/25 00:[address]: Amrit Lewis DEPT: [facility] Consult RECD BY: Jenny Fagan MLT, ([facility]) ENTERED: 07/22/25 11:38 SP TYPE: Consult OTHR DR: RICARDO Morrison MD Tissues: A - Peripheral Smear Procedures: Hematology Consult
[2025-07-22] MEDS: IPRATROPIUM 0.5 MG/ALBUTEROL SULFATE 2.5 MG (BASE) AMPUL.NEB 3 ML INHALATION ×2 (00:57→06:20)
[2025-07-22] MEDS: MORPHINE SULFATE (*CRX) 4 MG/ML INJ IV PUSH ×4 (01:35→09:33)
--- NOTE | 2025-07-22 09:26 | PC.NURSE ---
Awaiting DIRECTOR OF INTERCOLLEGIATE ATHLETICS to evaluate patient to determine if patient will still be getting IV fluids. Hospice consult immanent.
[2025-07-22] MEDS: SODIUM CHLORIDE 0.9% IV 1,000 ML 75 ML IV CONT (09:34)
[2025-07-22 09:56] LABS: Hematocrit 25.6 % (37.0-46.0); Hemoglobin 7.8 g/dL (12.4-15.3); Mean Corpuscular HGB Conc 30.5 g/dL (32-36); Mean Corpuscular Hemoglobin 26.7 pg (27.0-31.0); Mean Corpuscular Volume 87.7 fL (78.0-102.0); Platelet Count Result 175 K/mm3 (150-420); Red Blood Count 2.92 M/mm3 (4.70-6.10); White Blood Count 25.2 K/mm3 (4.8-10.8)
--- NOTE | 2025-07-22 09:56 | P.SS_ITS ---
Same Day Admit/Disch: HPI History of Present Illness Chief complaint: SOB Narrative: Acosta Osorio is a 65 year old male from senior living facility due to shortness of breaths and was found to have oxygen saturations in the 80s. 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 patient reports he does lower chest pain mild shortness of breath and mid upper abdominal pain. per the medical chart ER physician had contacted patient's oncologist regarding findings who recommended consult to hospice care for pain management and comfort care. patient had not received or started any palliative chemotherapy prior to admission. In the ED: patient was found to have acute respiratory failure with hypoxia with oxygen saturations in the 80s placed on 4 L supplemental oxygen and hemoglobin at 6.9 at which time he was transfused [address] abdomen redemonstrates peritoneal carcinomatosis with liver metastasis and CXR showing showing small opacities in the mid and lower lungs to could be atelectasis. [facility] Past Medical History Medical History (Updated 07/22/25 @ 10:04 by Angela Scott APRN) Malignant neoplasm of hepatic duct Leukemia Cataract associated with other syndromes Medical history non-contributory Surgical History Surgical History Hidradenitis suppurativa 01/04/24 Excision left groin hidradenitis History of back surgery Family History Family History Mother Diabetes mellitus Rectal cancer Father History of kidney cancer Social History Social History Smoking packs per day: 0.75 Smoking cigarettes per day: 15.0 Years smoked: 47 Smoking pack-years: 35.25 Smoking status: Current every day smoker Tobacco type: cigarettes Second hand tobacco smoke exposure: Yes Alcohol intake: unknown Substance use: unknown Substance use type: does not use Do You Feel Safe in your Home?: Yes Lack of Transportation: No Lack of Food: Never True Current Housing: I Have Housing Concerned About Future Housing: No Difficulty Paying Gas/Electric Bills: No Difficulty Paying for Meds: No Currently Unemployed: YES Education: High School Diploma/GED Difficulty w/ Childcare or Family Care: No Living arrangements: with family Additional living arrangements comments: [facility] Occupation/Education: occupation Additional occupation/education comments: [employer] Gender identity (if verbalized by the patient): Male Spiritual care concerns: No Same Day Admit/Disch: Med Pre-admit Medications Home Medications ?Medication ?Instructions ?Recorded ?Confirmed ?Type apixaban 5 mg tablet 5 mg PO Q12H 07/21/25 History fentanyl 50 mcg/hr transdermal 1 patch transdermal Q72 H 07/21/25 07/21/25 History patch hydromorphone 4 mg tablet 4 mg PO Q8H PRN pain 5 07/21/25 History lisinopril 10 mg tablet 10 mg PO DAILY 07/21/2507/12 History metoprolol succinate 25 mg 25 mg PO DAILY 07/21/2508/05 History tablet,extended release 24 hr morphine 30 mg tablet,extended 30 mg PO Q12H 07/21/25 07/21/25 History release ondansetron 8 mg disintegrating 8 mg PO Q8H PRN nausea and vomiting 07/21/25 07/21/25 History tablet prochlorperazine maleate 10 mg 10 mg PO Q6H PRN nausea and 07/21/25 07/21/25 History tablet vomiting Review of Systems Review of Systems All systems reviewed & are unremarkable except as noted in HPI and below Exam Const: General: uncomfortable Other: frail chronically ill male with moderate to severe pain HENMT: Mouth: Yes moist mucous membranes Eyes: General: appearance normal, both eyes and all related structures S clera: sclerae normal Pupils: Equal, round and reactive pupils present Neck: Neck: supple and no JVD Resp: Effort & Inspection: able to speak in complete sentences and uses accessory muscles Auscultation: diminished lung sounds bilateral Cardio: Rate: regular rate Rhythm: regular rhythm GI: GI Palp: Yes Soft to palpation Auscultation: normal bowel sounds Other: rounded Skin: General skin exam: normal color and no rashes or lesions noted Wounds: no wounds Neuro: Speech: normal speech Sensory Exam: normal sensation Extrem: General: normal to inspection Psych: Mental Status: mental status grossly normal Affect: normal affect DS: Data Data Completed and Pending Labs on day of discharge: Labs from last 24 hours 07/22/25 07/21/25 07/21/25 09:50 16:32 15:41 WBC Pending 20.6 H RBC Pending 2.55 L Hgb Pending 6.9 L* Hct Pending 22.8 L MCV Pending 89.4 MCH Pending 27.1 MCHC Pending 30.3 L RDW Pending 15.9 H Plt Count Pending 222 MPV Pending 10.4 Immature Gran % (Auto) Not Reportable Neut % (Auto) Not Reportable Lymph % (Auto) Not Reportable Will % (Auto) Not Reportable Eos % (Auto) Not Reportable Baso % (Auto) Not Reportable Lymph # (Auto) Not Reportable Will # (Auto) Not Reportable Eos # (Auto) Not Reportable Baso # (Auto) Not Reportable Abs Immat Gran (auto) Not Reportable Absolute Neuts (auto) Not Reportable Absolute Nucleated RBC Not Reportable Total Counted 100 Neutrophils % (Manual) 76 H Band Neutrophils % 0 Lymphocytes % (Manual) 17 L Monocytes % (Manual) 5 Eosinophils % (Manual) 1 Metamyelocytes % 1 Nucleated RBC % Not Reportable Abs Neuts (Manual) 15.65 H Abs Lymphs (Manual) 3.50 Abs Monocytes (Manual) 1.03 H Absolute Eos (Manual) 0.20 Platelet Estimate Adequate Schistocytes None seen Sodium Pending 135 L Potassium Pending 5.0 Chloride Pending 100 Carbon Dioxide Pending 30 Anion Gap Pending 5 BUN Pending 49 H D Creatinine Pending 1.76 H Estim Creat Clear Calc Pending 41 Estimated GFR Pending 39 L Glucose Pending 120 H Calculated Osmolality Pending 294 Lactic Acid 1.6 Calcium Pending 9.0 Magnesium Pending Total Bilirubin Pending 0.9 AST Pending 91 H ALT Pending 92 H Alkaline Phosphatase Pending 308 H NT-Pro-B Natriuret Pep 1300 H Total Protein Pending 5.8 L Albumin Pending 3.0 L Blood Type O Positive Antibody Screen Negative Crossmatch See Detail Imaging Radiologist's impression: EXAMINATION: XR chest 1V portable DATE: 07/21/2025 16:07 INDICATION: Shortness of breath. TECHNIQUE: A single AP portable upright frontal image of the chest was obtained COMPARISON: Chest x-ray 07/01/2025 FINDINGS: Heart is mildly enlarged. There is a stable right-sided Mediport catheter. No pneumothorax. No pleural effusion. No free air under the diaphragm. Small opacities in the lower lungs. IMPRESSION: 1. Small opacities in the mid and lower lungs which represents atelect asis/scarring or infiltrates. If symptoms persist or worsen, consider a short-term follow-up study or additional imaging for further assessment. Exam: CT abdomen and pelvis without contrast Clinical History: [Right flank pain for one week which is worsening.. ] Comparison: [ CT abdomen pelvis 07/03/2025] Technique: Multiple axial CT images of the abdomen and pelvis were obtained without IV contrast. Sagittal and coronal reformatted images were obtained. FINDINGS: Lung bases: [ There are a few small opacities in the lower lungs. There are a few less than 6 mm pulmonary nodules in the lower lobes. A chest CT is recommended. Liver: [ No intrahepatic biliary duct dilatation.] Redemonstration of the low density masses scattered throughout the liver consistent with liver metastases. Gallbladder: Gallbladder is contracted. Gallbladder wall thickening. Small amount of hyperdense material within the gallbladder which may represent sludge or tiny gallstones. The findings are similar to the prior recent CT studies. Common bile duct: [ Normal caliber.] Spleen: Stable low-density region within the spleen. Pancreas: [ No mass. No pancreatic fluid collection.] Adrenals: [ No masses.] Kidneys: [ No masses. No hydronephrosis.][ Stable left renal stone.] There are a few too small to characterize low-attenuation lesions in the kidneys. Lymph nodes: [ No adenopathy in the abdomen or pelvis.] Stomach, small bowel and colon: [ No bowel wall thickening or obstruction.] Peritoneum cavity: Redemonstration of the peritoneal carcinomatosis throughout the abdomen and pelvis. Interval development of a small to moderate amount of nonspecific fluid in the abdomen and pelvis. Bladder: Bladder is distended. Prostate gland is enlarged and partially calcified. Osseous structures: [ No acute fracture or destructive lesion.] [ Multilevel degenerative change in the visualized spine.] Abdominal aorta: [ No aneurysm.] Additional findings: Small right fat-containing or hernia which also contains a small amount of fluid. IMPRESSION: 1. Interval development of a small to moderate amount of nonspecific fluid in the abdomen or pelvis. 2. Redemonstration of the peritoneal carcinomatosis similar to the study from 07/03/2025. 3. Liver metastases similar to the study from 07/03/2025. 4. Indeterminate wedge-shaped hypovascular region in the spleen similar to the study from 07/03/2025. 5. Cholelithiasis. DS: Summary Hospital Course Reason for hospitalization: acute respiratory failure with hypoxia/Anemia/Dehydration Hospital Course: Acosta Osorio is a 65 year old male from senior living facility due to shortness of breaths and was found to have oxygen saturations in the 80s. 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 patient reports he does lower chest pain mild shortness of breath and mid upper abdominal pain. per the medical chart ER physician had contacted patient's oncologist regarding findings who recommended consult to hospice care for pain management and comfort care. patient had not received or started any palliative chemotherapy prior to admission. In the ED: patient was found to have acute respiratory failure with hypoxia with oxygen saturations in the 80s placed on 4 L supplemental oxygen and hemoglobin at 6.9 at which time he was transfused [address] abdomen redemonstrates peritoneal carcinomatosis with liver metastasis and CXR showing showing small opacities in the mid and lower lungs to could be atelectasis. Hospital Course: patient was admitted to the medical unit for pain management, blood transfusion and continued supplemental oxygen. had discussion with patient regarding code status as well request for consult to hospice care. After consult with hospice care patient at this time would like to transition to comfort care on hospice will discharge to inpatient hospice to assist with pain management. Status at Discharge Functional status at discharge: uses cane/walker Time Spent with Patient Time attestation: Total time spent providing and/or coordinating discharge services: Time spent: Greater than 30 minutes DS: Admitting Diagnosis Discharge Date 07/22/2025 Admitting Diagnosis acute respiratory failure with hypoxia/ anemia/ dehydration DS: Discharge Diagnosis Discharge Diagnosis (1) Malignant neoplasm of hepatic duct: Code(s): C24.0 - Malignant neoplasm of extrahepatic bile duct Status: Acute (2) CLL (chronic lymphocytic leukemia): Code(s): C91.10 - Chronic lymphocytic leukemia of B-cell type not having achieved remission Status: Acute (3) Anemia: Qualifiers: Anemia type: iron deficiency Iron deficiency anemia type: unspecified iron deficiency Qualified Code(s): D50.9 - Iron deficiency anemia, unspecified Code(s): D64.9 - Anemia, unspecified Status: Acute (4) Acute respiratory failure with hypoxia: Code(s): J96.01 - Acute respiratory failure with hypoxia Status: Acute (5) Encounter for end of life care: Code(s): Z51.5 - Encounter for palliative care Status: Acute Discharge Plan Discharge Attending physician on discharge: Amrit Lewis Consulting providers: Angela Scott Discharging Clinician: Angela Scott Anticipated Discharge Date/Time: 07/22/25 10:09 Patient Disposition: Hospice - Medical Facility Activity: as tolerated Diet: as tolerated Patient Language: Greenlandic Stand Alone Forms: General Discharge Information Discharge Medications: New acetaminophen 325 mg Tablet 650 mg PO Q4H PRN (Reason: Mild Pain (1-3) Or Fever) Qty: 1 0RF Continued fentanyl 50 mcg/hr patch 72 hour 1 patch transdermal Q72H Patient Comments: last applied 07/21/25 prochlorperazine maleate 10 mg tablet 10 mg PO Q6H PRN (Reason: nausea and vomiting) morphine 30 mg tablet extended release 30 mg PO Q12H ondansetron 8 mg tablet,disintegrating 8 mg PO Q8H PRN (Reason: nausea and vomiting) lisinopril 10 mg tablet 10 mg PO DAILY metoprolol succinate 25 mg tablet extended release 24 hr 25 mg PO DAILY hydromorphone 4 mg tablet 4 mg PO Q8H PRN (Reason: pain) Discontinued apixaban 5 mg tablet 5 mg PO Q12H Date of admission: 07/21/25 18:35 Primary Care Provider: Tacho Manjarrez Admitting Provider: Amrit Lewis Attending physician on admission: Amrit Lewis Condition: Stable Quality VTE Prophylaxis VTE prophylaxis: mechanical ordered and pharmacologic ordered (Held eliquis) -Patient's previous records reviewed on admission -ER notes reviewed in detail on admission -discussed all findings and current treatment plan with patient/Family/POA -Consultations reviewed for recommendations -Patient's disposition for safe discharge discussed with correctional casework specialist -radiology imaging, EKG and test results I have personally reviewed and interpreted unless otherwise specified Dictation performed by [employer] direct speech recognition software, therefore extender variants and typographical errors may occur. Hospitalist MIPS Advance Care Plan I have confirmed that the patient's Advanced Care Plan is present, code status is documented, or surrogate decision maker is listed in patient medical record.: Yes Medication Reconciliation I have utilized all available resources to obtain, update and review the patients current medications (includes all prescriptions, OTC, herbals, cannabis, and nutritional supplements).: Yes The patient is not eligible for med reconciliation; the patient is in a emergent medical situation where delaying treatment would jeopardize the patients health.: No Heart Failure (Exclusion) Patient has history of Heart Transplant or Left Ventricular Assistive Device?: No IF YES, STOP HERE Heart Failure (Qualifier) Patient has current or prior documentation of LVEF less than or equal to 40%, or mod/servere depressed LVSF?: No IF NO, STOP HERE
--- NOTE | 2025-07-22 09:57 | PC.NURSE ---
0930 talked with [facility]. they will be here around ll15. family at bedside and aware.
[2025-07-22 10:11] LABS: Alanine Aminotransferase 103 U/L (6-50); Albumin Level 2.9 g/dL (3.5-5.1); Alkaline Phosphatase 285 U/L (38-126); Anion Gap 6 mmol/L (4-12); Aspartate Amino Transferase 103 U/L (17-59); Bilirubin,Total 1.3 mg/dL (0.2-1.3); Blood Urea Nitrogen 45 mg/dL (9-20); Calcium 8.7 mg/dL (8.4-10.2); Carbon Dioxide 28 mmol/L (22-30); Chloride 102 mmol/L (98-107); Estimated CRCL calculation 45 ml/min; Estimated Glomerular Filt Rate 44; Glucose 105 mg/dL (65-110); Magnesium 2.4 mg/dL (1.6-2.3); Osmolality Calculated 293 mOsm/kg (285-295); Potassium 4.9 mmol/L (3.4-5.0); Sodium 136 mmol/L (137-145); Total Protein 5.8 g/dL (6.3-8.2)
--- NOTE | 2025-07-22 10:12 | PC.NURSE ---
[employer]LE [employer] CON[employer]TER ordered fluids to continue.
[2025-07-22] MEDS: MORPHINE SULFATE (*CRX) 30 MG TABCR PO (10:16)
--- NOTE | 2025-07-22 12:02 | PC.NURSE ---
Patient changed from observation status to inpatient status.
--- NOTE | 2025-07-22 12:20 | PC.NURSE ---
Patient discharged from inpatient observation and readmitted as inpatient hospice at 1220.
== END 2025-07-22 12:20 | disposition hospice, inpatient (51) | DRG 189 ==
LOC: CHSED 18:33 → CHS2ND 18:45
PROVIDERS: Nurse Practitioner Family; Admitting Provider Internal Medicine; Emergency Provider Family Medicine; PCP Internal Medicine; Visit Provider Internal Medicine
DX: J96.01 Acute respiratory failure with hypoxia (principal); C91.10 Chronic lymphocytic leukemia of B-cell type not having achieved remission; C24.0 Malignant neoplasm of extrahepatic bile duct; Z51.5 Encounter for palliative care; D50.9 Iron deficiency anemia, unspecified; E86.0 Dehydration; I10 Essential (primary) hypertension; N40.0 Benign prostatic hyperplasia without lower urinary tract symptoms; R07.9 Chest pain, unspecified
CPT/HCPCS: 36415; 36430; 71045; 74176; 80053; 83605; 83735; 83880; 85025; 85027; 86850; 86900; 86901; 86920; 93005; 94640; 96361; 96374; 96375; 96376; 99285; A9270; G0378; J2270; J2405; J7030; J7050; P9016

== ENCOUNTER 2025-07-22 12:25 | HOS | payer OTHER, SELFPAY ==
[2025-07-22 12:25] VITALS: BMI 26.2
[2025-07-22 12:58] VITALS: PULSE 95; RESP 18; O2SAT 84
[2025-07-22 13:22] VITALS: PULSE 95; RESP 18; O2SAT 90
[2025-07-22] MEDS: MORPHINE SULFATE (*CRX) 2 MG/ML INJ IV PUSH ×4 (13:34→18:29)
[2025-07-22 13:37] VITALS: PULSE 95
[2025-07-22] MEDS: METOPROLOL SUCCINATE EXT REL 25 MG TABCR PO (13:37)
[2025-07-22] MEDS: dexAMETHasone SOD PHOS INJ 10 MG/ML 1 ML VIAL 8 MG IV PUSH (13:41)
[2025-07-22 17:01] VITALS: BP 124/60; PULSE 86; RESP 20; TEMP 36.4; O2SAT 91
[2025-07-22 20:00] VITALS: PULSE 84; RESP 20; O2SAT 93
[2025-07-22] MEDS: SENNA/DOCUSATE SODIUM TABLET 1 TAB PO (21:23)
[2025-07-22] MEDS: MORPHINE SULFATE (*CRX) 4 MG/ML INJ 3 MG IV PUSH (21:24)
[2025-07-22] MEDS: MORPHINE SULFATE (*CRX) 30 MG TABCR PO (21:59)
[2025-07-23] VITALS: BP 111/52; PULSE 87; RESP 18; TEMP 36.5; O2SAT 91
[2025-07-23] MEDS: MORPHINE SULFATE (*CRX) 4 MG/ML INJ 3 MG IV PUSH ×3 (00:59→08:04)
[2025-07-23 07:06] VITALS: BP 131/70; PULSE 89; RESP 20; TEMP 36.8; O2SAT 90
[2025-07-23] MEDS: dexAMETHasone SOD PHOS INJ 10 MG/ML 1 ML VIAL 8 MG IV PUSH (08:08)
[2025-07-23 08:12] VITALS: PULSE 89
[2025-07-23] MEDS: METOPROLOL SUCCINATE EXT REL 25 MG TABCR PO (08:12)
[2025-07-23] MEDS: MORPHINE SULFATE (*CRX) 30 MG TABCR PO (08:13)
--- NOTE | 2025-07-23 09:25 | P.HP_ITS ---
H&P: HPI History of Present Illness Date/Time: 07/23/25 09:25 Chief Complaint: SOB/Severe pain Narrative: Acosta Osorio is a 65 [facility] due to [facility]ness of breaths and was found to have oxygen saturations in the 80s. patient has a past medical history of HTN, BPH, CLL, intrahepatic biliary ductal carcinoma with metastasis intrahepatic biliary ductal carcinoma with met astasis. patient reports he does lower chest pain mild shortness of breath and mid upper abdominal pain. per the medical chart ER physician had contacted patient's oncologist regarding findings who recommended consult to hospice care for pain management and comfort care. patient had not received or started any palliative chemotherapy prior to admission. Patient had been admitted to the medical unit for pain management at which time [facility] hospice was consulted and patient was discharged to inpatient hospice for pain management control. patient was started on Decadron daily and IV morphine will attempt to transition to oral pain management and patient to discharge to [facility] on hospice. patient is seen today reports pain is more manageable and has improved. Review of Systems Review of Systems: All systems reviewed & are unremarkable except as noted in HPI and below PMFSH Past Medical History Medical History Malignant neoplasm of hepatic duct Leukemia Cataract associated with other syndromes Medical history non-contributory Surgical History Surgical History Hidradenitis suppurativa 01/04/24 Excision left groin hidradenitis History of back surgery Family History Family History Mother Diabetes mellitus Rectal cancer Father History of kidney cancer Social History Social History Smoking packs per day: 1 Smoking cigarettes per day: 20.0 Years smoked: 40 Smoking pack-years: 40.00 Smoking status: Current every day smoker Tobacco type: cigarettes Second hand tobacco smoke exposure: Yes Alcohol intake: unknown Substance use: unknown Substance use type: does not use Do You Feel Safe in your Home?: Yes Lack of Transportation: No Lack of Food: Never True Current Housing: I Have Housing Concerned About Future Housing: No Difficulty Paying Gas/Electric Bills: No Difficulty Paying for Meds: No Currently Unemployed: YES Education: High School Diploma/GED Difficulty w/ Childcare or Family Care: No Living arrangements: with family Additional living arrangements comments: [facility] Occupation/Education: occupation Additional occupation/education comments: [employer] Gender identity (if verbalized by the patient): Male Spiritual care concerns: No Meds Home Medications and Allergies Home Medications ?Medication ?Instructions ?Recorded ?Confirmed ?Type apixaban 5 mg tablet 5 mg PO Q12H 07/21/25 History fentanyl 50 mcg/hr transdermal 1 patch transdermal Q72 H 07/21/25 07/22/25 History patch hydromorphone 4 mg tablet 4 mg PO Q8H PRN pain 5 07/22/25 History lisinopril 10 mg tablet 10 mg PO DAILY 07/21/2507/12 History metoprolol succinate 25 mg 25 mg PO DAILY 07/21/2509/05 History tablet,extended release 24 hr morphine 30 mg tablet,extended 30 mg PO Q12H 07/21/25 07/22/25 History release ondansetron 8 mg disintegrating 8 mg PO Q8H PRN nausea and vomiting 07/21/25 07/22/25 History tablet prochlorperazine maleate 10 mg 10 mg PO Q6H PRN nausea and 07/21/25 07/22/25 History tablet vomiting ipratropium 0.5 mg-albuterol 3 mg 3 ml inhalation Q8H 07/22/25 07/22/25 History (2.5 mg base)/3 mL nebulization soln Allergies Allergy/AdvReac Type Severity Reaction Status Date / Time No Known Allergies Allergy Verified 07/21/25 21:15 Vital Signs Vital Signs - 24 hr 07/22/25 12:58 07/22/25 13:22 07/22/25 13:37 Temperature Pulse Rate 95 95 95 Respiratory Rate 18 18 Blood Pressure Pulse Oximetry 84 L 90 Oxygen Delivery Nasal Cannula Nasal Cannula Oxygen Flow Rate 4 4 07/22/25 17:01 07/22/25 20:00 07/23/25 00:00 Temperature 97.6 F 97.7 F Pulse Rate 86 84 87 Respiratory Rate 20 20 18 Blood Pressure 124/60 111/52 L Pulse Oximetry 91 93 91 Oxygen Delivery Nasal Cannula Nasal Cannula Nasal Cannula Oxygen Flow Rate 4 4 4 07/23/25 07:06 07/23/25 07:06 07/23/25 08:12 Temperature 98.3 F Pulse Rate 89 89 89 Respiratory Rate 20 20 Blood Pressure 131/70 Pulse Oximetry 90 90 Oxygen Delivery Nasal Cannula Nasal Cannula Oxygen Flow Rate 4 4 Exam Const: General: comfortable and no acute distress HENMT: Mouth: Yes moist mucous membranes Eyes: General: appearance normal, both eyes and all related structures Sclera: sclerae normal Pupils: Equal, round and reactive pupils present Neck: Neck: supple and no JVD Resp: Effort & Inspection: normal respiratory effort Auscultation: clear to auscultation bilaterally Cardio: Rate: regular rate Rhythm: regular rhythm GI: GI Palp: Yes Soft to palpation Auscultation: normal bowel sounds Skin: General skin exam: normal color and no rashes or lesions noted Wounds: no wounds Neuro: Speech: normal speech Psych: Mental Status: mental status grossly normal Assessment and Plan Assessment and plan (1) Encounter for end of life care: Code(s): Z51.5 - Encounter for palliative care Status: Acute Assessment and Plan: Patient was admitted to [facility] inpatient for pain management secondary to Malignant neoplasm of the hepatic duct with metastasis * Oxygen PRN for comfort * pain management with 50 mcg fentanyl patch Q 72, morphine sulfate full of our release 30 mg q.12 * IV push morphine 3 mg Q 2 hours scheduled * IV push morphine 2 mg Q1 p.r.n. for breakthrough pain * 8 mg Decadron daily * antiemetics * Ativan p.o. 1 mg q.4 hours q.4 hours p.r.n. * atropine drops for secretions * bowel regimen to avoid constipation secondary to narcotics plan is to continue to get patient's pain under control need to transition to oral morphine prior to [facility] (2) CLL (chronic lymphocytic leukemia): Code(s): C91.10 - Chronic lymphocytic leukemia of B-cell type not having achieved remission Status: Acute (3) Malignant neoplasm of hepatic duct: Code(s): C24.0 - Malignant neoplasm of extrahepatic bile duct Status: Acute (4) Acute respiratory failure with hypoxia: Code(s): J96.01 - Acute respiratory failure with hypoxia Status: Acute Plan Code status: DNR/DNI/comfort care/hospice Disposition: Plan for discharge to [facility] on hospice once pain is controlled. Quality If No VTE Prophylaxis Answer both mechanical and pharmacologic: Reason no mechanical VTE proph: medical contraindication Reason no pharmacologic proph: medical contraindication -Patient's previous records reviewed on admission -ER notes reviewed in detail on admission -discussed all findings and current treatment plan with patient/Family/POA -Consultations reviewed for recommendations -Patient's disposition for safe discharge discussed with lining caser -radiology imaging, EKG and test results I have personally reviewed and interpreted unless otherwise specified Dictation performed by [employer] direct speech recognition software, therefore high pressure firer variants and typographical errors may occur. Hospitalist MIPS Advance Care Plan I have confirmed that the patient's Advanced Care Plan is present, code status is documented, or surrogate decision maker is listed in patient medical record.: Yes Medication Reconciliation I have utilized all available resources to obtain, update and review the patients current medications (includes all prescriptions, OTC, herbals, cannabis, and nutritional supplements).: Yes The patient is not eligible for med reconciliation; the patient is in a emergent medical situation where delaying treatment would jeopardize the patients health.: No
[2025-07-23] MEDS: MORPHINE SULFATE (*CRX) 15 MG TABCR PO (10:32)
[2025-07-23 12:00] VITALS: O2SAT 91
[2025-07-23] MEDS: MORPHINE SULFATE (*CRX) 4 MG/ML INJ 2 MG IV PUSH ×4 (12:05→23:19)
[2025-07-23] MEDS: MORPHINE SULFATE (*CRX) 2 MG/ML INJ IV PUSH ×3 (12:55→22:21)
--- NOTE | 2025-07-23 13:00 | PC.NURSE ---
Patient c/o severe pain post use of bedpan. Scheduled morphine administered and ineffective. PRN morphine administered and awaiting results.
[2025-07-23 16:00] VITALS: BP 113/62; PULSE 78; RESP 18; TEMP 36.9; O2SAT 92
[2025-07-23 20:00] VITALS: PULSE 84; RESP 18; O2SAT 90
[2025-07-23] MEDS: SENNA/DOCUSATE SODIUM TABLET 1 TAB PO (21:21)
[2025-07-23] MEDS: MORPHINE SULFATE (*CRX) 15 MG TABCR 45 MG PO (21:21)
[2025-07-23] MEDS: LORazepam (*CRX) 1 MG TABLET PO (22:21)
[2025-07-24] VITALS (7 sets, daily range): BP systolic 107–116; BP diastolic 61–63; PULSE 84–88; RESP 12–18; TEMP 36.7–37.1; O2SAT 88–92
[2025-07-24] MEDS: MORPHINE SULFATE (*CRX) 4 MG/ML INJ 2 MG IV PUSH ×3 (04:59→13:26)
[2025-07-24] MEDS: dexAMETHasone SOD PHOS INJ 10 MG/ML 1 ML VIAL 8 MG IV PUSH (09:42)
[2025-07-24] MEDS: METOPROLOL SUCCINATE EXT REL 25 MG TABCR PO (09:42)
[2025-07-24] MEDS: fentaNYL (*CRX) 50 MCG PATCH TRANSDERM (10:45)
[2025-07-24] MEDS: MORPHINE SULFATE (*CRX) 15 MG TABCR 45 MG PO (10:45)
--- NOTE | 2025-07-24 11:18 | P.PNIM_ITS ---
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 for breakthrough pain * 8 mg Decadron daily * antiemetics * Ativan p.o. 1 mg q.4 hours q.4 hours p.r.n. * atropine drops for secretions * bowel regimen to avoid constipation secondary to narcotics plan is to continue to get patient's pain under control need to transition to oral morphine prior to discharge to [facility] on hosp[facility] (2) CLL (chronic lymphocytic leukemia): Code(s): C91.10 - Chronic lymphocytic leukemia of B-cell type not having achieved remission Status: Acute (3) Malignant neoplasm of hepatic duct: Code(s): C24.0 - Malignant neoplasm of extrahepatic bile duct Status: Acute (4) Acute respiratory failure with hypoxia: Code(s): J96.01 - Acute respiratory failure with hypoxia Status: Acute Plan Code status: DNR/DNI/comfort care/hospice Disposition: Plan for discharge to [facility] on hospice once pain is controlled. Time Spent With Patient Time with patient: 15 - 25 minutes Subjective Date/time seen: 07/24/25 11:18 Interval history: Patient is a 65-year-old male admitted to hospice care inpatient for pain management 07/24/2025: patient reported pain had improved however when I asked his pain on a pain scale he still said 10 but during our interview he was lethargic and continued to doze off. will continue to titrate pain medications plan for discharge to inpatient hospice at [facility]. Review of Systems Review of Systems: All systems reviewed & are unremarkable except as noted in HPI and below Exam Const: General: comfortable and no acute distress HENMT: Mouth: Yes moist mucous membranes Eyes: General: appearance normal, both eyes and all related structures Sclera: sclerae normal Pupils: Equal, round and reactive pupils present Neck: Neck: supple and no JVD Resp: Effort & Inspection: normal respiratory effort Auscultation: clear to auscultation bilaterally Cardio: Rate: regular rate Rhythm: regular rhythm GI: Auscultation: normal bowel sounds Skin: General skin exam: normal color and no rashes or lesions noted Wounds: no wounds Neuro: Cranial nerves: Yes Equal, round and reactive pupils present Speech: normal speech Psych: Mental Status: mental status grossly normal Objective Data Vital Signs Vital Signs: Vital Signs - 24 hr 07/23/25 12:00 07/23/25 16:00 07/23/25 20:00 Temperature 98.5 F Pulse Rate 78 84 Respiratory Rate 18 18 Blood Pressure 113/62 Pulse Oximetry 91 92 90 Oxygen Delivery Nasal Cannula Nasal Cannula Oxygen Flow Rate 4 4 07/24/25 00:00 07/24/25 07:40 07/24/25 09:42 Temperature 98.1 F 98.5 F Pulse Rate 84 88 88 Respiratory Rate 18 12 Blood Pressure 116/63 107/63 Pulse Oximetry 90 92 Oxygen Delivery Nasal Cannula Nasal Cannula Oxygen Flow Rate 4 4 Intake/Output Intake/Output: Intake & Output 07/21/25 07/22/25 07/23/25 07/24/25 23:59 23:59 23:59 23:59 Intake Total 850 1600 200 Output Total 350 1250 Balance 500 350 200 Meds/Results Medications: Active Medications Generic Name Dose Route Start Last Admin Trade Name Freq PRN Reason Stop Dose Admin Acetaminophen 650 mg 07/22/25 13:22 Acetaminophen 325 Mg Tablet PO Q4H PRN Mild Pain (1-3) or Fever Albuterol/Ipratropium 3 ml 07/22/25 13:21 Ipratropium 0.5 Mg/Albuterol Sulfate 2.5 Mg (Base) Ampul.Neb 3 Ml INHALATION Q8H PRN wheezing Atropine Sulfate 1 drop 07/22/25 17:00 07/24/25 09:42 Atropine Sulfate 1% Ophth Soln 5 Ml Bottle EACH EYE 1 drop TID BEV Administration Bisacodyl 10 mg 07/22/25 13:22 Bisacodyl 10 Mg Suppository RECTAL QAM PRN Constipation Dexamethasone Sodium Phosphate 8 mg 07/22/25 13:35 07/24/25 09:42 Dexamethasone Sod Phos Inj 10 Mg/Ml 1 Ml Vial IV PUSH 8 mg DAILY BEV Administration Fentanyl 50 mcg 07/24/25 09:00 07/24/25 10:45 Fentanyl (*Crx) 50 Mcg Patch TRANSDERM 50 mcg Q72H BEV Administration Lisinopril 10 mg 07/22/25 13:30 07/24/25 09:42 Lisinopril 10 Mg Tablet PO 10 mg DAILY BEV Administration Lorazepam 1 mg 07/23/25 09:28 07/23/25 22:21 Lorazepam (*Crx) 1 Mg Tablet PO 1 mg Q4H PRN Administration Anxiety Metoprolol Succinate 25 mg 07/22/25 13:30 07/24/25 09:42 Metoprolol Succinate Ext Rel 25 Mg Tabcr PO 25 mg DAILY BEV Administration Morphine Sulfate 2 mg 07/22/25 13:22 07/23/25 22:21 Morphine Sulfate (*Crx) 2 Mg/Ml Inj IV PUSH 2 mg Q1HR PRN Administration Breakthrough Pain Morphine Sulfate 2 mg 07/23/25 12:00 07/24/25 09:42 Morphine Sulfate (*Crx) 4 Mg/Ml Inj IV PUSH 2 mg Q4H BEV Administration Morphine Sulfate 45 mg 07/23/25 21:00 07/24/25 10:45 Morphine Sulfate (*Crx) 15 Mg Tabcr PO 45 mg Q12H BEV Administration Ondansetron HCl 4 mg 07/22/25 13:22 Ondansetron Inj 4 Mg/2 Ml Vial IV PUSH Q6H PRN Nausea And Vomiting Polyethylene Glycol 17 gm 07/23/25 09:00 07/24/25 10:03 Polyethylene Glycol 3350 17 Gm Powd.Pack PO Not Given QAM BEV Senna/Docusate Sodium 1 tab 07/22/25 21:00 07/23/25 21:21 Senna/Docusate Sodium Tablet PO 1 tab HS BEV Administration Quality If No VTE Prophylaxis Answer both mechanical and pharmacologic: Reason no mechanical VTE proph: low risk/not indicated Reason no pharmacologic proph: low risk/not indicated -Patient's previous records reviewed on admission -ER notes reviewed in detail on admission -discussed all findings and current treatment plan with patient/Family/POA -Consultations reviewed for recommendations -Patient's disposition for safe discharge discussed with nurse case manager -radiology imaging, EKG and test results I have personally reviewed and interpreted unless otherwise specified Dictation performed by [employer] direct speech recognition software, therefore distiller variants and typographical errors may occur. Hospitalist MIPS Advance Care Plan I have confirmed that the patient's Advanced Care Plan is present, code status is documented, or surrogate decision maker is listed in patient medical record.: Yes Medication Reconciliation I have utilized all available resources to obtain, update and review the patients current medications (includes all prescriptions, OTC, herbals, cannabis, and nutritional supplements).: Yes The patient is not eligible for med reconciliation; the patient is in a emergent medical situation where delaying treatment would jeopardize the patients health.: No
[2025-07-24] MEDS: MORPHINE SULFATE (*CRX) 15 MG TABCR PO (15:09)
[2025-07-24] MEDS: SENNA/DOCUSATE SODIUM TABLET 2 TAB PO (20:17)
[2025-07-24] MEDS: MORPHINE SULFATE (*CRX) 30 MG TABCR 60 MG PO (20:17)
[2025-07-25] VITALS: BP 111/69; PULSE 97; RESP 20; TEMP 37.2; O2SAT 88
[2025-07-25] MEDS: LORazepam (*CRX) 1 MG TABLET PO (02:22)
[2025-07-25 05:30] VITALS: O2SAT 88
[2025-07-25 07:40] VITALS: BP 101/50; PULSE 88; RESP 16; TEMP 36.9; O2SAT 93
[2025-07-25 08:35] VITALS: PULSE 88; RESP 16; O2SAT 93
[2025-07-25] MEDS: dexAMETHasone SOD PHOS INJ 10 MG/ML 1 ML VIAL 8 MG IV PUSH (09:20)
[2025-07-25] MEDS: MORPHINE SULFATE (*CRX) 30 MG TABCR 60 MG PO ×2 (09:21→20:52)
--- NOTE | 2025-07-25 10:44 | P.PNIM_ITS ---
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 for breakthrough pain will transition to oral Caridad * 8 mg Decadron daily * antiemetics * Ativan p.o. 1 mg q.4 hours q.4 hours p.r.n. * atropine drops for secretions * bowel regimen to avoid constipation secondary to narcotics plan is to continue to get patient's pain under control need to transition to oral morphine prior to discharge to custodial facility on hospice (2) CLL (chronic lymphocytic leukemia): Code(s): C91.10 - Chronic lymphocytic leukemia of B-cell type not having achieved remission Status: Acute (3) Malignant neoplasm of hepatic duct: Code(s): C24.0 - Malignant neoplasm of extrahepatic bile duct Status: Acute (4) Acute respiratory failure with hypoxia: Code(s): J96.01 - Acute respiratory failure with hypoxia Status: Acute Plan Code status: DNR/DNI/comfort care/hospice Disposition: Plan for discharge to [facility] on hospice once pain is controlled. Time Spent With Patient Time with patient: 15 - 25 minutes Subjective Date/time seen: 07/25/25 10:44 Interval history: Patient is a 65-year-old male admitted to hospice care inpatient for pain management 07/25/2025: Patient pain better under control today was able to ambulate to bedside commode with assistance. No PRN IV morphine given since increase to 60mg Ms Contin. Still no BM but did report passing gas and dose not feel constipated. Review of Systems Review of Systems: All systems reviewed & are unremarkable except as noted in HPI and below Exam Const: General: comfortable and no acute distress HENMT: Mouth: Yes moist mucous membranes Eyes: General: appearance normal, both eyes and all related structures Sclera: sclerae normal Pupils: Equal, round and reactive pupils present Neck: Neck: supple and no JVD Resp: Effort & Inspection: normal respiratory effort Auscultation: clear to auscultation bilaterally Cardio: Rate: regular rate Rhythm: regular rhythm GI: Auscultation: normal bowel sounds Skin: General skin exam: normal color and no rashes or lesions noted Wounds: no wounds Neuro: Cranial nerves: Yes Equal, round and reactive pupils present Speech: normal speech Psych: Mental Status: mental status grossly normal Objective Data Vital Signs Vital Signs: Vital Signs - 24 hr 07/24/25 16:35 07/24/25 20:00 07/25/25 00:00 Temperature 98.7 F 98.9 F Pulse Rate 85 85 97 Respiratory Rate 16 16 20 Blood Pressure 107/61 111/69 Pulse Oximetry 92 88 L 88 L Oxygen Delivery Nasal Cannula Nasal Cannula Nasal Cannula Oxygen Flow Rate 3 3 2 07/25/25 07:40 Temperature 98.4 F Pulse Rate 88 Respiratory Rate 16 Blood Pressure 101/50 L Pulse Oximetry 93 Oxygen Delivery Nasal Cannula Oxygen Flow Rate 3 Intake/Output Intake/Output: Intake & Output 07/22/25 07/23/25 07/24/25 07/25/25 23:59 23:59 23:59 23:59 Intake Total 850 1600 470 350 Output Total 350 1250 300 300 Balance 500 350 170 50 Meds/Results Medications: Active Medications Generic Name Dose Route Start Last Admin Trade Name Freq PRN Reason Stop Dose Admin Acetaminophen 650 mg 07/22/25 13:22 Acetaminophen 325 Mg Tablet PO Q4H PRN Mild Pain (1-3) or Fever Albuterol/Ipratropium 3 ml 07/22/25 13:21 Ipratropium 0.5 Mg/Albuterol Sulfate 2.5 Mg (Base) Ampul.Neb 3 Ml INHALATION Q8H PRN wheezing Atropine Sulfate 1 drop 07/22/25 17:00 07/25/25 09:22 Atropine Sulfate 1% Ophth Soln 5 Ml Bottle EACH EYE 1 drop TID BEV Administration Bisacodyl 10 mg 07/22/25 13:22 Bisacodyl 10 Mg Suppository RECTAL QAM PRN Constipation Dexamethasone Sodium Phosphate 8 mg 07/22/25 13:35 07/25/25 09:20 Dexamethasone Sod Phos Inj 10 Mg/Ml 1 Ml Vial IV PUSH 8 mg DAILY BEV Administration Fentanyl 50 mcg 07/24/25 09:00 07/24/25 10:45 Fentanyl (*Crx) 50 Mcg Patch TRANSDERM 50 mcg Q72H BEV Administration Lisinopril 10 mg 07/22/25 13:30 07/24/25 09:42 Lisinopril 10 Mg Tablet PO 10 mg DAILY BEV Administration Lorazepam 1 mg 07/23/25 09:28 07/25/25 02:22 Lorazepam (*Crx) 1 Mg Tablet PO 1 mg Q4H PRN Administration Anxiety Metoprolol Succinate 25 mg 07/22/25 13:30 07/24/25 09:42 Metoprolol Succinate Ext Rel 25 Mg Tabcr PO 25 mg DAILY BEV Administration Morphine Sulfate 60 mg 07/24/25 21:00 07/25/25 09:21 Morphine Sulfate (*Crx) 30 Mg Tabcr PO 60 mg Q12H BEV Administration Morphine Sulfate 2 mg 07/24/25 14:38 Morphine Sulfate (*Crx) 2 Mg/Ml Inj IV PUSH Q2HR PRN Breakthrough Pain Ondansetron HCl 4 mg 07/22/25 13:22 Ondansetron Inj 4 Mg/2 Ml Vial IV PUSH Q6H PRN Nausea And Vomiting Polyethylene Glycol 17 gm 07/23/25 09:00 07/25/25 09:20 Polyethylene Glycol 3350 17 Gm Powd.Pack PO 17 gm QAM BEV Administration Senna/Docusate Sodium 2 tab 07/24/25 21:00 07/24/25 20:17 Senna/Docusate Sodium Tablet PO 2 tab HS BEV Administration Quality VTE Prophylaxis VTE prophylaxis: mechanical ordered If No VTE Prophylaxis Answer both mechanical and pharmacologic: Reason no mechanical VTE proph: medical contraindication Reason no pharmacologic proph: medical contraindication -Patient's previous records reviewed on admission -ER notes reviewed in detail on admission -discussed all findings and current treatment plan with patient/Family/POA -Consultations reviewed for recommendations -Patient's disposition for safe discharge discussed with pillowcase cleaner -radiology imaging, EKG and test results I have personally reviewed and interpreted unless otherwise specified Dictation performed by [employer] direct speech recognition software, therefore sanding machine tender variants and typographical errors may occur. Hospitalist MIPS Advance Care Plan I have confirmed that the patient's Advanced Care Plan is present, code status is documented, or surrogate decision maker is listed in patient medical record.: Yes Medication Reconciliation I have utilized all available resources to obtain, update and review the patients current medications (includes all prescriptions, OTC, herbals, cannabis, and nutritional supplements).: Yes The patient is not eligible for med reconciliation; the patient is in a emergent medical situation where delaying treatment would jeopardize the patients health.: No
[2025-07-25 16:10] VITALS: BP 109/65; PULSE 92; RESP 16; TEMP 36.9; O2SAT 89
[2025-07-25] MEDS: SENNA/DOCUSATE SODIUM TABLET 2 TAB PO (20:53)
[2025-07-25 23:43] VITALS: BP 116/62; PULSE 94; RESP 19; TEMP 37.2; O2SAT 90
[2025-07-26 05:30] VITALS: O2SAT 90
[2025-07-26 08:00] VITALS: BP 142/79; PULSE 94; RESP 16; TEMP 37.1; O2SAT 90
--- NOTE | 2025-07-26 09:25 | P.DS_ITS ---
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 for breakthrough pain will transition to oral Caridad * 8 mg Decadron daily * antiemetics * Ativan p.o. 1 mg q.4 hours q.4 hours p.r.n. * atropine drops for secretions * bowel regimen to avoid constipation secondary to narcotics plan is to continue to get patient's pain under control need to transition to oral morphine prior to discharge to nursing home facility on hospice (2) CLL (chronic lymphocytic leukemia): Code(s): C91.10 - Chronic lymphocytic leukemia of B-cell type not having achieved remission Status: Acute (3) Malignant neoplasm of hepatic duct: Code(s): C24.0 - Malignant neoplasm of extrahepatic bile duct Status: Acute (4) Acute respiratory failure with hypoxia: Code(s): J96.01 - Acute respiratory failure with hypoxia Status: Acute Plan Code status: DNR/DNI/comfort care/hospice Disposition: Plan for discharge to [facility] on hospice once pain is controlled. DS: Summary Hospital Course Reason for hospitalization: CLL Hospital Course: Acosta Osorio is a 65 year old male from nursing home facility due to shortness of breaths and was found to have oxygen saturations in the 80s. 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 patient reports he does lower chest pain mild shortness of breath and mid upper abdominal pain. per the medical chart ER physician had contacted patient's oncologist regarding findings who recommended consult to hospice care for pain management and comfort care. patient had not received or started any palliative chemotherapy prior to admission. Patient was admitted for pain control and [facility] was consulted. Patient's pain medications were adjusted and patient was started on Decadron daily. Patient was initially marilyn ated with IV morphine and was then transitioned to oral pain management. Patient was discharged to [facility] on [facility] and comfort measures. Patient will continue to be followed by hospice and his PCP after discharge. Time Spent with Patient Time attestation: Total time spent providing and/or coordinating discharge services: 35 Minutes Exam Const: General: comfortable and no acute distress HENMT: Mouth: Yes moist mucous membranes Eyes: General: appearance normal, both eyes and all related structures Sclera: sclerae normal Pupils: Equal, round and reactive pupils present Neck: Neck: supple and no JVD Resp: Effort & Inspection: normal respiratory effort Auscultation: clear to auscultation bilaterally Cardio: Rate: regular rate Rhythm: regular rhythm GI: Auscultation: normal bowel sounds Skin: General skin exam: normal color and no rashes or lesions noted Wounds: no wounds Neuro: Cranial nerves: Yes Equal, round and reactive pupils present Speech: normal speech Psych: Mental Status: mental status grossly normal Discharge Plan Discharge Attending physician on discharge: Amrit Lewis Consulting providers: Angela Scott Discharging Clinician: Michelle Silva Patient Disposition: NH [facility]/Asst Living Activity: as tolerated Diet: as tolerated and regular Discharge Instructions: Patient discharging with [facility]. Patient Instructions: Antibiotic Form, Lorazepam (By mouth), Dexamethasone (By mouth), Hospice Care (GEN), Fall Prevention for Older Adults (DC) Patient Language: Maltese Stand Alone Forms: General Discharge Information, Custodial Discharge Follow-up/Referrals: Tacho Manjarrez MD [Primary Care Provider, Internal Medicine] Referral Note: follow up within 1-2 weeks of discharge. Patient to be followed by [facility]. Discharge Medications: New acetaminophen 325 mg Tablet 650 mg PO Q4H PRN (Reason: Mild Pain (1-3) Or Fever) Qty: 30 0RF polyethylene glycol 3350 [Miralax] 17 gram Powder In Packet 17 g PO QAM Qty: 30 0RF sennosides-docusate sodium [Senokot-S] 8.6-50 mg Tablet 2 tab PO HS Qty: 60 0RF morphine 30 mg Tablet Extended Release 60 mg PO Q12H Qty: 28 0RF lorazepam 0.5 mg Tablet 0.5 mg PO Q4H PRN (Reason: Anxiety) Qty: 14 0RF dexamethasone 2 mg Tablet 4 mg PO DAILY@0800 Qty: 30 0RF bisacodyl 10 mg Suppository 10 mg RECTAL QAM PRN (Reason: Constipation) Qty: 30 0RF atropine 1 % Drops 1 drp EACH EYE TID Qty: 5 0RF morphine concentrate 100 mg/5 mL (20 mg/mL) solution 5 mg PO Q4H PRN (Reason: pain) Qty: 15 0RF Continued fentanyl 50 mcg/hr patch 72 hour 1 patch transdermal Q72H Patient Comments: last applied 07/21/25 prochlorperazine maleate 10 mg tablet 10 mg PO Q6H PRN (Reason: nausea and vomiting) ondansetron 8 mg tablet,disintegrating 8 mg PO Q8H PRN (Reason: nausea and vomiting) lisinopril 10 mg tablet 10 mg PO DAILY metoprolol succinate 25 mg tablet extended release 24 hr 25 mg PO DAILY ipratropium-albuterol 0.5 mg-3 mg(2.5 mg base)/3 mL solution for nebulization 3 ml inhalation Q8H Discontinued morphine 30 mg tablet extended release 30 mg PO Q12H hydromorphone 4 mg tablet 4 mg PO Q8H PRN (Reason: pain) apixaban 5 mg tablet 5 mg PO Q12H Date of admission: 07/22/25 12:25 Primary Care Provider: Tacho Manjarrez Admitting Provider: Amrit Lewis Interventions: Discharge Disposition Last Done: 07/26/25 11:28 Attending physician on admission: Michelle Silva Condition: Stable Quality VTE Prophylaxis VTE prophylaxis: mechanical ordered
[2025-07-26 10:09] VITALS: PULSE 90
[2025-07-26] MEDS: MORPHINE SULFATE (*CRX) 30 MG TABCR 60 MG PO (10:09)
[2025-07-26] MEDS: METOPROLOL SUCCINATE EXT REL 25 MG TABCR PO (10:09)
--- NOTE | 2025-07-26 10:49 | PC.NURSE ---
today at 1045 verbal report given to [facility] at [facility] for admission to their facility.
--- NOTE | 2025-07-26 10:50 | PC.NURSE ---
[facility] being paged for return trip to [place] in [place] for hospice
--- NOTE | 2025-08-02 10:21 | PC.NURSE ---
Discharged back to long term, no questions regarding dc instructions from long term
== END 2025-07-26 11:15 | disposition hospice, home (50) | DRG 951 ==
PROVIDERS: Admitting Provider Internal Medicine; PCP Internal Medicine; Visit Provider Nurse Practitioner Adult Health
DX: Z51.5 Encounter for palliative care (principal); J96.01 Acute respiratory failure with hypoxia; C91.10 Chronic lymphocytic leukemia of B-cell type not having achieved remission; C24.0 Malignant neoplasm of extrahepatic bile duct; C79.89 Secondary malignant neoplasm of other specified sites; F17.210 Nicotine dependence, cigarettes, uncomplicated; G89.3 Neoplasm related pain (acute) (chronic); I10 Essential (primary) hypertension; N40.0 Benign prostatic hyperplasia without lower urinary tract symptoms; Z66 Do not resuscitate; Z79.01 Long term (current) use of anticoagulants
CPT/HCPCS: A9270; J1100; J2270; J8540